=== PATIENT | female | born 1990 | race African-American/Black ===

== ENCOUNTER 2016-07-04 11:23 | Emergency (ER) | payer OTHER ==
--- NOTE | 2016-07-04 11:50 | ER Document Report ---
ED Medical Screen (RME) - General Chief Complaint: Diarrhea Stated Complaint: DIARRHEA Mode of Arrival: Ambulatory Information source: Patient Notes: Patient presents to the emergency department with her son for complaints of diarrhea since Saturday. She reports sharp pains when she is on the toilet. Denies fever vomiting. Patient is nontoxic looking. - Related Data Allergies/Adverse Reactions: No Known Allergies Allergy (Verified 02/25/13 20:36) Past Medical History Renal/ Medical History: Reports: Hx Ovarian Cysts - Immunizations Immunizations up to date: Yes Hx Diphtheria, Pertussis, Tetanus Vaccination: Yes Physical Exam - Vital signs Vitals: Temp Pulse Resp BP Pulse Ox 98.5 F 81 14 137/94 H 96 07/04/16 11:34 07/04/16 11:34 07/04/16 11:34 07/04/16 11:34 07/04/16 11:34 Course - Vital Signs Vital signs: Temp Pulse Resp BP Pulse Ox 98.5 F 81 14 137/94 H 96 07/04/16 11:34 07/04/16 11:34 07/04/16 11:34 07/04/16 11:34 07/04/16 11:34
--- NOTE | 2016-07-04 12:43 | ER Document Report ---
HPI - HPI Patient complains to provider of: head congestion, diarrhea and headache Onset: Other - Saturday Onset/Duration: Persistent Pain Level: 2 Context: 26-year-old obese female complaining of diarrhea and some low abdominal cramping when she sits on the toilet to have diarrhea since Saturday. She also has some head congestion and headache. No chest pain or shortness of breath. No nausea or vomiting. No fever or chills. No dysuria frequency or urgency. No vaginal discharge. Associated Symptoms: None Exacerbated by: Denies Relieved by: Denies - ROS ROS below otherwise negative: Yes Systems Reviewed and Negative: Yes All other systems reviewed and negative - REPRODUCTIVE Reproductive: REPORTS: : - DERM Skin Color: Normal Past Medical History - General Information source: Patient - Social History Smoking Status: Never Smoker Chew tobacco use (# tins/day): No Frequency of alcohol use: None Drug Abuse: None Family History: None Patient has suicidal ideation: No Patient has homicidal ideation: No Renal/ Medical History: Reports: Hx Ovarian Cysts. Denies: Hx Peritoneal Dialysis Surgical Hx: Negative - Immunizations Immunizations up to date: Yes Hx Diphtheria, Pertussis, Tetanus Vaccination: Yes Vertical Provider Document - CONSTITUTIONAL Agree With Documented VS: Yes Exam Limitations: No Limitations - HEENT HEENT: Normocephalic, Pharyngeal Erythema. negative: Conjuctival Injection, Tympanic Membrane Red - Minimal, Tympanic Membrane Bulging - NECK Neck: Supple. negative: Lymphadenopathy-Left, Lymphadenopathy-Right - RESPIRATORY Respiratory: Breath Sounds Normal, No Respiratory Distress O2 Sat by Pulse Oximetry: 96 - CARDIOVASCULAR Cardiovascular: Regular Rate, Regular Rhythm - GI/ABDOMEN Gastrointestinal: Abdomen Soft, Abdomen Tender - Minimal suprapubic, No Organomegaly. negative: Abdominal Guarding, Abdominal Rebound - MUSCULOSKELETAL/EXTREMETIES Musculoskeletal/Extremeties: SUNITHA EISENBERG - NEURO Level of Consciousness: Awake, Alert - DERM Integumentary: Warm, Dry, No Rash Course - Re-evaluation Re-evalutation: 07/04/16 14:54 Labs negative, no history of C. difficile or recent antibiotics 07/04/16 14:56 Crying with migraine headache her will drive I will order Compazine, Benadryl, Motrin. She has an elevated blood pressure reading which will need to be rechecked next week a fever list practice doctors. 07/04/16 14:58 - Vital Signs Vital signs: Temp Pulse Resp BP Pulse Ox 98.5 F 81 14 137/94 H 96 07/04/16 11:34 07/04/16 11:34 07/04/16 11:34 07/04/16 11:34 07/04/16 11:34 - Laboratory Result Diagrams: 07/04/16 13:10 07/04/16 13:10 Discharge - Discharge Clinical Impression: Abdominal cramping, elevated blood reading Diarrhea Qualifiers: Diarrhea type: unspecified type Qualified Code(s): R19.7 - Diarrhea, unspecified Headache Qualifiers: Headache type: unspecified Headache chronicity pattern: unspecified pattern Intractability: not intractable Qualified Code(s): R51 - Headache Disposition: HOME, SELF-CARE Instructions: Abdominal Pain ([facility]), Diarrhea, Nonspecific ([facility]), Headache ([facility]) Additional Instructions: return to er if worse plenty of fluids see family practice doctor for follow up and blood pressure recheck Forms: Return to Work
[2016-07-04 13:22] LABS: ABSOLUTE EOSINOPHILS # (AUTO) 0.3 10^3/uL (0.0-0.6); ABSOLUTE LYMPHOCYTES (AUTO) 2.3 10^3/uL (0.5-4.7); ABSOLUTE MONOCYTES (AUTO) 0.6 10^3/uL (0.1-1.4); BASOPHILS % (AUTO) 0.3 % (0-2); EOSINOPHILS % (AUTO) 4.6 % (0-6); HEMATOCRIT 37.4 % (36.0-47.0); HEMOGLOBIN 12.3 g/dL (12.0-15.5); HGB HCT DIFFERENCE -0.5; LYMPHOCYTES % (AUTO) 37.8 % (13-45); MEAN CORPUSCULAR HEMOGLOBIN 28.4 pg (27.0-33.4); MEAN CORPUSCULAR VOLUME 86 fl (80-97); MONOCYTES % (AUTO) 9.4 % (3-13); RED BLOOD COUNT 4.33 10^6/uL (3.72-5.28); RED CELL DISTRIBUTION WIDTH 14.1 % (11.5-14.0); SEGMENTED NEUTROPHILS % (AUTO) 47.9 % (42-78); WHITE BLOOD COUNT 6.2 10^3/uL (4.0-10.5)
[2016-07-04 13:31] LABS: APPEARANCE,URINE CLOUDY; BILIRUBIN,URINE NEGATIVE (NEGATIVE); GLUCOSE, URINE NEGATIVE (NEGATIVE); KETONES,URINE NEGATIVE (NEGATIVE); LEUKOCYTE ESTERASE,URINE NEGATIVE (NEGATIVE); NITRITE,URINE NEGATIVE (NEGATIVE); PROTEIN,URINE NEGATIVE (NEGATIVE); URINE SPECIFIC GRAVITY 1.021; UROBILINOGEN,URINE NEGATIVE mg/dL (<2.0)
[2016-07-04 13:46] LABS: ALANINE AMINOTRANSFERASE 26 U/L (9-52); ALBUMIN 3.7 g/dL (3.5-5.0); ALKALINE PHOSPHATASE 94 U/L (38-126); ANION GAP 9 (5-19); ASPARTATE AMINO TRANSFERASE 18 U/L (14-36); BILIRUBIN,TOTAL 0.6 mg/dL (0.2-1.3); BLOOD UREA NITROGEN 10 mg/dL (7-20); CALCIUM 9.1 mg/dL (8.4-10.2); CARBON DIOXIDE 26 mmol/L (22-30); CHLORIDE 105 mmol/L (98-107); CREATININE RESULT 0.64 mg/dL (0.52-1.25); GLUCOSE 87 mg/dL (75-110); POTASSIUM 4.1 mmol/L (3.6-5.0); SODIUM 139.9 mmol/L (137-145)
[2016-07-04] MEDS ORDERED: ACETAMINOPHEN 325 MG TABLET PO ONE (14:10)
[2016-07-04] MEDS ORDERED: DIPHENHYDRAMINE HCL 50 MG CAPSULE PO ONE (14:56)
[2016-07-04] MEDS ORDERED: IBUPROFEN 600 MG TABLET PO ONE (14:56)
[2016-07-04] MEDS ORDERED: PROCHLORPERAZINE MALEATE 10 MG TABLET PO ONE (14:56)
[2016-07-04 17:44] VITALS: BP 136/89
== END 2016-07-04 16:40 | disposition home or self-care (01) ==
LOC: ER 11:23
DX: R19.7 Diarrhea, unspecified (principal); R51 Headache; E66.9 Obesity, unspecified; R10.30 Lower abdominal pain, unspecified; R68.89 Other general symptoms and signs; R03.0 Elevated blood-pressure reading, without diagnosis of hypertension
CPT/HCPCS: 99284; 36415; 87070; 87086; 87880; 84703; 85025; 80053; 81001; 87804; S0183

== ENCOUNTER 2016-07-23 17:59 | Emergency (ER) | payer OTHER ==
--- NOTE | 2016-07-23 20:06 | ER Document Report ---
ED Medical Screen (RME) - General Stated Complaint: ABDOMINAL PAIN Time seen by provider: 20:05 Mode of Arrival: Ambulatory Information source: Patient Notes: 26-year-old female with intermittent sharp left pelvic pain that started one month ago. She has irregular periods last normal period is June 15. She had a positive home test on Saturday. No vaginal discharge, odor, or bleeding. History HPV. No dysuria. I have greeted and performed a rapid initial assessment of this patient. A comprehensive ED assessment, evaluation of the patient, analysis of test results , and completion of the medical decision making process will be conducted by additional ED providers. - Related Data Allergies/Adverse Reactions: No Known Allergies Allergy (Verified 07/23/16 20:04) Past Medical History Renal/ Medical History: Reports: Hx Ovarian Cysts. Denies: Hx Peritoneal Dialysis - Immunizations Immunizations up to date: Yes Hx Diphtheria, Pertussis, Tetanus Vaccination: Yes Physical Exam - Vital signs Vitals: Temp Pulse Resp BP Pulse Ox 98.2 F 81 20 132/89 H 100 07/23/16 18:14 07/23/16 18:14 07/23/16 18:14 07/23/16 18:14 07/23/16 18:14 Course - Vital Signs Vital signs: Temp Pulse Resp BP Pulse Ox 98.2 F 81 20 132/89 H 100 07/23/16 18:14 07/23/16 18:14 07/23/16 18:14 07/23/16 18:14 07/23/16 18:14
[2016-07-23 20:44] LABS: APPEARANCE,URINE CLEAR; BILIRUBIN,URINE NEGATIVE (NEGATIVE); GLUCOSE, URINE NEGATIVE (NEGATIVE); KETONES,URINE 80 mg/dL (NEGATIVE); LEUKOCYTE ESTERASE,URINE NEGATIVE (NEGATIVE); NITRITE,URINE NEGATIVE (NEGATIVE); PROTEIN,URINE 30 mg/dL (NEGATIVE); URINE SPECIFIC GRAVITY 1.033; UROBILINOGEN,URINE NEGATIVE mg/dL (<2.0)
--- NOTE | 2016-07-23 23:12 | ER Document Report ---
ED GI/ - General Mode of Arrival: Ambulatory Information source: Patient TRAVEL OUTSIDE OF THE [place] IN LAST 30 DAYS: No - HPI Patient complains to provider of: Pelvic pain - cramping Associated symptoms: Other - See above <ANDI HUFF - Last Filed: 07/24/16 01:25> <SAMMI MARTINEZ - Last Filed: 07/24/16 04:39> - General Chief Complaint: Abdominal Pain Stated Complaint: ABDOMINAL PAIN Notes: Patient is a 26 year old female who presents to the emergency department complaining of left sided pelvic cramping. Patient states she had a positive test at home 4 days ago and she has a history of ectopic pregnancies. Patient denies vaginal bleeding. Patient reports she has not started taking vitamins. (ANDI HUFF) - Related Data Allergies/Adverse Reactions: No Known Allergies Allergy (Verified 07/23/16 20:04) Past Medical History - General Information source: Patient - Social History Smoking Status: Never Smoker Chew tobacco use (# tins/day): No Frequency of alcohol use: None Drug Abuse: None Family History: None, Reviewed & Not Pertinent Patient has suicidal ideation: No Patient has homicidal ideation: No Renal/ Medical History: Reports: Hx Ovarian Cysts - Immunizations Immunizations up to date: Yes Hx Diphtheria, Pertussis, Tetanus Vaccination: Yes <ANDI HUFF - Last Filed: 07/24/16 01:25> Review of Systems - Review of Systems Constitutional: No symptoms reported EENT: No symptoms reported Cardiovascular: No symptoms reported Respiratory: No symptoms reported Gastrointestinal: No symptoms reported Genitourinary: No symptoms reported Female Genitourinary: See HPI, , Other - Pelvic cramping. denies: Vaginal bleeding Musculoskeletal: No symptoms reported Skin: No symptoms reported Hematologic/Lymphatic: No symptoms reported Neurological/Psychological: No symptoms reported -: Yes All other systems reviewed and negative <ANDI HUFF - Last Filed: 07/24/16 01:25> Physical Exam - Vital signs Interpretation: Normal - General General appearance: Appears well, Alert - HEENT Head: Normocephalic, Atraumatic - Respiratory Respiratory status: No respiratory distress Chest status: Nontender Breath sounds: Normal Chest palpation: Normal - Cardiovascular Rhythm: Regular Heart sounds: Normal auscultation Murmur: No - Abdominal Inspection: Normal Distension: No distension Bowel sounds: Normal Tenderness: Nontender Organomegaly: No organomegaly - Back Back: Normal, Nontender - Extremities General upper extremity: Normal inspection General lower extremity: Normal inspection - Neurological Neuro grossly intact: Yes Cognition: Normal Orientation: AAOx4 [place] Coma Scale Eye Opening: Spontaneous [place] Coma Scale Verbal: Oriented [place] Coma Scale Motor: Obeys Commands [place] Coma Scale Total: 15 Speech: Normal Motor strength normal: LUE, RUE, LLE, RLE - Psychological Associated symptoms: Normal affect, Normal mood - Skin Skin Temperature: Warm Skin Moisture: Dry Skin Color: Normal <ANDI HUFF - Last Filed: 07/24/16 01:25> Course <ANDI HUFF - Last Filed: 07/24/16 01:25> - Diagnostic Test Radiology reviewed: Reports reviewed <SAMMI MARTINEZ - Last Filed: 07/24/16 04:39> - Re-evaluation Re-evalutation: 07/24/16 Patient is a 26-year-old female who comes in for abdominal cramping. No cramping at this time. No tenderness to palpation. Patient is . She has a gestational sac in her uterus. No evidence for ectopic. Feels well this time. Stable for discharge home. Follow-up with [facility]. Advised to take a vitamin. Return if any worsening or concerning symptoms. (SAMMI MARTINEZ) - Vital Signs Vital signs: Temp Pulse Resp BP Pulse Ox 98.2 F 87 17 141/90 H 99 07/23/16 18:14 07/24/16 00:04 07/24/16 00:04 07/24/16 00:04 07/24/16 00:04 - Laboratory Laboratory results interpreted by me: 07/23/16 07/23/16 20:25 20:25 Beta HCG, Quant 1568.10 H Urine Protein 30 H Urine Ketones 80 H Discharge <ANDI HUFF - Last Filed: 07/24/16 01:25> <SAMMI MARTINEZ - Last Filed: 07/24/16 04:39> - Discharge Clinical Impression: Qualifiers: Weeks of gestation: less than 8 weeks Qualified Code(s): Z3A.01 - Less than 8 weeks gestation of Condition: Stable Disposition: HOME, SELF-CARE Instructions: ([facility]), Pelvic Pain in ([facility]) Prescriptions: Vit No.129/Iron/FA [ Tablet] 1 each PO DAILY #60 tablet Forms: Return to Work Referrals: [facility] [Provider Group] - Follow up in 1 week Scribe Attestation: 07/24/16 04:38 I personally performed the services described in the documentation, reviewed and edited the documentation which was dictated to the scribe in my presence, and it accurately records my words and actions. (SAMMI MARTINEZ) Scribe Documentation - Scribe Written by Scribe:: eldon Prieto, 07/24/16, 0023 acting as scribe for :: Chong <ANDI HUFF - Last Filed: 07/24/16 01:25>
[2016-07-24 00:06] VITALS: BP 141/90
== END 2016-07-24 00:04 | disposition home or self-care (01) ==
LOC: ER 17:59
DX: O26.891 Other specified pregnancy related conditions, first trimester (principal); R10.2 Pelvic and perineal pain; Z3A.01 Less than 8 weeks gestation of pregnancy
CPT/HCPCS: 36415; 76817; 81001; 84702; 87086; 99284

== ENCOUNTER 2016-08-20 10:55 | Emergency (ER) | payer OTHER ==
[2016-08-20] MEDS ORDERED: NORMAL SALINE 1000 ML 1,000 ML IV ONE (11:30)
[2016-08-20] MEDS ORDERED: DIPHENHYDRAMINE HCL 50 MG/ML VIAL IV ONE (11:30)
[2016-08-20] MEDS ORDERED: METOCLOPRAMIDE HCL INJ/PF 10 MG/2 ML SDV IV ONE (11:31)
--- NOTE | 2016-08-20 11:32 | ER Document Report ---
ED Medical Screen (RME) - General Chief Complaint: Headache Stated Complaint: HEADACHE,NAUSEA,VOMITING Mode of Arrival: Ambulatory Information source: Patient TRAVEL OUTSIDE OF THE [place] IN LAST 30 DAYS: No - HPI Onset: Yesterday Onset/Duration: Sudden Quality of pain: Achy, Dull Severity: Moderate Associated Symptoms: Headache, Nausea, Vomiting. denies: Shortness of breath, Sinus pain/drainage Exacerbated by: Denies Relieved by: Denies Similar symptoms previously: Yes Recently seen / treated by doctor: No Notes: 08/20/16 11:26 PRESENT HEADACHE ENTIRELY TYPICAL COMP. W/ PRIOR MIGRAINES - Related Data Smoking: Non-smoker Frequency of alcohol use: None Drug Abuse: None Allergies/Adverse Reactions: No Known Allergies Allergy (Verified 07/31/16 10:18) Past Medical History - General Information source: Patient - Social History Cigarette use (# per day): No Chew tobacco use (# tins/day): No Frequency of alcohol use: None Drug Abuse: None Lives with: Family Family history: None - Past Medical History Cardiac Medical History: Reports: None Pulmonary Medical History: Reports: None Neurological Medical History: Reports: Hx Migraine Renal/ Medical History: Reports: Hx Ovarian Cysts. Denies: Hx Peritoneal Dialysis Malignancy Medical History: Reports: None Psychiatric Medical History: Reports: None Surgical Hx: Negative - Immunizations Immunizations up to date: Yes Hx Diphtheria, Pertussis, Tetanus Vaccination: Yes Review of Systems - Review of Systems Female Genitourinary: Physical Exam - Vital signs Interpretation: Normal. No: Tachycardic, Tachypneic, Febrile - General General appearance: Appears well, Alert In distress: None
[2016-08-20] MEDS ORDERED: NORMAL SALINE 500 ML IV PRN (14:06)
--- NOTE | 2016-08-20 14:10 | ER Document Report ---
ED Headache - General Chief Complaint: Headache Stated Complaint: HEADACHE,NAUSEA,VOMITING Mode of Arrival: Ambulatory Notes: Patient is a 26-year-old female presents emergency Department complaining of migraine headache since yesterday. Patient states she is a history of migraines but is been INVOLVED her medications since she left the [employer] in the [place] has not been able to establish a follow-up visit with her and neurology yet. Patient states that she has a history of taking a daily preventative medication as well as Maxalt for abortive purposes. She is also 9 weeks' and is only about to take Tylenol [id number] for her migraines. Patient states that she typically takes Excedrin which sometimes helps her to her . Patient states [facility] and she's had an ultrasound upon her first visit with them confirming IUP. Otherwise states her migraine headache she denies any other past medical history . Complaint today is predominantly in the right side of her head with associated nausea and vomiting. TRAVEL OUTSIDE OF THE [place] IN LAST 30 DAYS: No - Related Data Allergies/Adverse Reactions: No Known Allergies Allergy (Verified 07/31/16 10:18) Past Medical History - General Information source: Patient - Social History Smoking Status: Unknown if Ever Smoked Cigarette use (# per day): No Chew tobacco use (# tins/day): No Frequency of alcohol use: None Drug Abuse: None Lives with: Family Family History: None, Reviewed & Not Pertinent Patient has suicidal ideation: No Patient has homicidal ideation: No - Past Medical History Cardiac Medical History: Reports: None Pulmonary Medical History: Reports: None Neurological Medical History: Reports: Hx Migraine Renal/ Medical History: Reports: Hx Ovarian Cysts. Denies: Hx Peritoneal Dialysis Malignancy Medical History: Reports: None Psychiatric Medical History: Reports: None Surgical Hx: Negative - Immunizations Immunizations up to date: Yes Hx Diphtheria, Pertussis, Tetanus Vaccination: Yes Review of Systems - Review of Systems Constitutional: No symptoms reported Gastrointestinal: See HPI Neurological/Psychological: See HPI -: Yes All other systems reviewed and negative Physical Exam - Vital signs Vitals: Temp Pulse Resp BP Pulse Ox 98.3 F 76 16 134/85 H 99 08/20/16 11:24 08/20/16 11:24 08/20/16 11:24 08/20/16 11:24 08/20/16 11:24 - Notes Notes: PHYSICAL EXAM GENERAL: Patient is alert, in mild distress sitting in a dark exam room with sunglasses on her face and not really acknowledging me when I enter the room. HEAD: Normocephalic, atraumatic. EYES: Pupils equal, round, and reactive to light. Extraocular movements intact. ENT: Oral mucosa moist, tongue midline. NECK: Full range of motion. Supple. Trachea midline. LUNGS: Clear to auscultation bilaterally, no wheezes, rales, or rhonchi. No respiratory distress. HEART: Regular rate and rhythm. No murmurs, gallops, or rubs. ABDOMEN: Soft, nondistended, nontender. No guarding, rebound, or rigidity.. Bowel sounds present in all 4 quadrants. EXTREMITIES: Moves all 4 extremities spontaneously. No edema, radial and dorsalis pedis pulses 2/4 bilaterally. No cyanosis. NEUROLOGICAL: Alert and oriented x4. Normal speech. PSYCH: Normal affect, normal mood. SKIN: Warm, dry, normal turgor. No rashes or lesions noted. Course - Re-evaluation Re-evalutation: 08/20/16 16:43 Patient is a 26 red female with a past medical history significant for migraine headaches typically requiring prescription medications. I have discussed her case with neurology front end ui developer Dr. Garcia is recommended starting the patient on by mouth Imitrex for her migraines until she is able to follow-up with the [place] neurology. Kary harrell patient is agreeable. Otherwise after her fluids and medications she is here with a was stable, no acute distress and afebrile. She is complete resolution of her symptoms are like to go home. - Vital Signs Vital signs: Temp Pulse Resp BP Pulse Ox 98.3 F 88 16 118/81 100 08/20/16 11:24 08/20/16 16:25 08/20/16 11:24 08/20/16 16:25 08/20/16 16:25 - Laboratory Laboratory results interpreted by me: 08/20/16 11:35 Beta HCG, Quant 66517.00 H Discharge - Discharge Clinical Impression: Migraine Condition: Good Disposition: HOME, SELF-CARE Additional Instructions: HEADACHE: The physician does not feel that the headache you are experiencing has a serious underlying cause. Most headaches are due to emotional stress, with resultant muscle tension (tension headache). Occasionally, headaches are secondary to changes in the blood vessels of the scalp (vascular headache and migraine headache). Sometimes, a headache is the first symptom of another developing illness, such as a viral infection. You have no evidence of stroke, bleeding, meningitis, or other serious cause of your headache. The treatment of headaches varies with the severity and cause of the pain. Not all headaches need pain shots. In fact, there is evidence that using narcotics for headaches may make them worse in the long run. The physician will determine the therapy that's in your best interest. If you develop a fever, if the headache is different from any you've previously experienced, or if the headache progressively worsens, then call your physician at once or go to the emergency room. REGLAN (METOCLOPRAMIDE): Reglan has been prescribed. This medicine affects the stomach and intestines. It can be used to treat nausea and vomiting, to prevent reflux of stomach acid up into the esophagus, or to increase the contractions of the stomach and intestines. It is often prescribed for esophagitis, and for paralysis of the stomach in diabetics. Reglan can cause either mild restlessness or drowsiness. You should contact the doctor at once if you become extremely restless, anxious, or cannot sleep, or if you develop uncontrollable motions of the lips, tongue, or jaw. Do not take alcohol with this medicine. Do not drive or operate machinery until you have been taking this medicine long enough to know how it affects you. Call the doctor if you develop abdominal pains, lightheadedness, black stool, or blood in the stool or vomitus. USE OF DIPHENHYDRAMINE: Diphenhydramine (Benadryl) is an antihistamine and has been recommended to help treat your headache and to prevent side effects of other medications used to treat headaches. The medication can be repeated four times daily. Age Elixir (12.5 mg/tsp) 25 mg pill adult 1-2 tabs Antihistamines may cause drowsiness, especially with the first dose. Do not operate machinery or drive while under the effects of the medication. Do not combine the medication with alcohol, or with any other medication without talking to your doctor. ANTINAUSEA MEDICATION: You have been given a medication to suppress nausea and vomiting. This type of medication can be given as a shot, pill, or suppository. It will usually last for many hours. Pills and shots usually last six to eight hours, suppositories last about 12 hours. For the typical illness, only one or two doses of the medication may be necessary. Mild lightheadedness may occur. This type of medicine can cause drowsiness. Do not drive or operate dangerous machinery while under its influence. Do not mix with alcohol. See your doctor at once if you have muscle spasms or tightness, or uncontrollable motions (particularly of the neck, mouth, or jaw). Persistent vomiting or severe lightheadedness should also be evaluated by the physician. FOLLOW-UP CARE: If you have been referred to a physician for follow-up care, call the physician s office for an appointment as you were instructed or within the next two days. If you experience worsening or a significant change in your symptoms, notify the physician immediately or return to the Emergency Department at any time for re-evaluation. [facility] Prescriptions: Ondansetron [Zofran Odt 4 mg Tablet] 1 - 2 tab PO Q4H PRN #15 tab.rapdis PRN Reason: For Nausea/Vomiting Sumatriptan Succinate [Imitrex 100 Mg Tablet] 100 mg PO BIDP PRN #20 tablet PRN Reason: Forms: Elevated Blood Pressure, Return to Work
[2016-08-20] MEDS ORDERED: DIPHENHYDRAMINE HCL 50 MG/ML VIAL ONE (14:39)
[2016-08-20] MEDS ORDERED: METOCLOPRAMIDE HCL INJ/PF 10 MG/2 ML SDV ONE (14:39)
[2016-08-20] MEDS ORDERED: ACETAMINOPHEN 325 MG TABLET PO ONE (15:41)
[2016-08-20 16:27] VITALS: BP 118/81
== END 2016-08-20 16:25 | disposition home or self-care (01) ==
LOC: ER 10:55
DX: G43.909 Migraine, unspecified, not intractable, without status migrainosus (principal); R11.2 Nausea with vomiting, unspecified
CPT/HCPCS: 99283; 96361; 96374; 96375; 36415; 84702; J1200; J2765; J7030

== ENCOUNTER 2016-11-18 16:16 | Outpatient (CLI) | payer OTHER ==
[2016-11-18 17:00] LABS: APPEARANCE,URINE SLIGHTLY-CLOUDY; BILIRUBIN,URINE NEGATIVE (NEGATIVE); GLUCOSE, URINE NEGATIVE (NEGATIVE); KETONES,URINE NEGATIVE (NEGATIVE); LEUKOCYTE ESTERASE,URINE NEGATIVE (NEGATIVE); NITRITE,URINE NEGATIVE (NEGATIVE); PROTEIN,URINE NEGATIVE (NEGATIVE); URINE SPECIFIC GRAVITY 1.028; UROBILINOGEN,URINE NEGATIVE mg/dL (<2.0)
[2016-11-18 17:09] LABS: URINE BARBITURATES SCREEN NEGATIVE; URINE METHADONE SCREEN NEGATIVE; URINE OPIATES LOW NEGATIVE; URINE PHENCYCLIDINE SCREEN NEGATIVE
--- NOTE | 2016-11-18 18:56 | RADIOLOGY REPORT (SQ) ---
EXAM DESCRIPTION: U/S OB LIMITED COMPLETED DATE/TIME: 11/18/2016 6:39 pm REASON FOR STUDY: CL for abd cramping COMPARISON: 08/12/2016. TECHNIQUE: Limited transabdominal grayscale ultrasound for evaluation of specific requested obstetri rosa parameters. LIMITATIONS: None. FINDINGS: CERVICAL LENGTH: 4.5 cm. Closed. MARYSE: Maximum vertical pocket 6.4 cm. FHR: 150 beats per minute. PRESENTATION: Transverse OTHER: Posterior placenta without evidence of abruption or previa. IMPRESSION: LIMITED OBSTETRICAL ULTRASOUND WITH MEASURED PARAMETERS DELINEATED ABOVE. Trimester of : Third trimester - 28 weeks to delivery. TECHNICAL DOCUMENTATION: JOB ID: [id number] [employer]- All Rights Reserved
== END 2016-11-18 18:42 | disposition home or self-care (01) ==
LOC: LC 16:16
PROVIDERS: ATTEND Obstetrics & Gynecology
PROC: 4A1HXCZ Monitoring of Products of Conception, Cardiac Rate, External Approach (ICD-10-PCS; principal; 2016-11-18)
DX: O99.283 Endocrine, nutritional and metabolic diseases complicating pregnancy, third trimester (principal); E86.0 Dehydration; O26.893 Other specified pregnancy related conditions, third trimester; R10.9 Unspecified abdominal pain
CPT/HCPCS: 76815; 80307; 81001

== ENCOUNTER 2017-01-08 14:56 | Emergency (ER) | payer OTHER ==
--- NOTE | 2017-01-08 15:37 | ER Document Report ---
ED Medical Screen (RME) - General Chief Complaint: Numbness Stated Complaint: CHEST PAIN Time Seen by Provider: 01/08/17 15:36 Notes: Patient reports right sided facial weakness. 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 She has had this weakness since this morning. Patient also states she has been under a lot of stress and has been having some chest pain for the last several weeks. She is also had one episode where she was short of breath and felt like she may pass out. This episode was 2-3 days ago and it was while she was under stress. She is currently approximately 29 weeks and has had no problems with the . TRAVEL OUTSIDE OF THE [place] IN LAST 30 DAYS: No - Related Data Allergies/Adverse Reactions: No Known Allergies Allergy (Verified 01/08/17 15:05) Past Medical History - Social History Frequency of alcohol use: None Drug Abuse: None Family history: None Neurological Medical History: Reports: Hx Migraine Renal/ Medical History: Reports: Hx Ovarian Cysts. Denies: Hx Peritoneal Dialysis - Immunizations Immunizations up to date: Yes Hx Diphtheria, Pertussis, Tetanus Vaccination: Yes Physical Exam - Vital signs Vitals: Temp Pulse Resp BP Pulse Ox 98.8 F 95 20 141/97 H 98 01/08/17 15:05 01/08/17 15:05 01/08/17 15:05 01/08/17 15:05 01/08/17 15:05 Course - Vital Signs Vital signs: Temp Pulse Resp BP Pulse Ox 98.8 F 96 20 141/97 H 98 01/08/17 15:06 01/08/17 15:06 01/08/17 15:05 01/08/17 15:06 01/08/17 15:06
[2017-01-08 15:54] LABS: ABSOLUTE EOSINOPHILS # (AUTO) 0.3 10^3/uL (0.0-0.6); ABSOLUTE LYMPHOCYTES (AUTO) 2.3 10^3/uL (0.5-4.7); ABSOLUTE MONOCYTES (AUTO) 0.8 10^3/uL (0.1-1.4); ABSOLUTE NEUT (AUTO) 5.5 10^3/uL (1.7-8.2); BASOPHILS % (AUTO) 0.2 % (0-2); EOSINOPHILS % (AUTO) 3.3 % (0-6); HEMOGLOBIN 11.1 g/dL (12.0-15.5); HGB HCT DIFFERENCE 0.3; MEAN CORPUSCULAR HEMOGLOBIN 28.8 pg (27.0-33.4); MEAN CORPUSCULAR HGB CONC 33.6 g/dL (32.0-36.0); MEAN CORPUSCULAR VOLUME 86 fl (80-97); RED BLOOD COUNT 3.85 10^6/uL (3.72-5.28); RED CELL DISTRIBUTION WIDTH 14.1 % (11.5-14.0); SEGMENTED NEUTROPHILS % (AUTO) 61.5 % (42-78); WHITE BLOOD COUNT 8.9 10^3/uL (4.0-10.5)
[2017-01-08 16:09] LABS: ALANINE AMINOTRANSFERASE 20 U/L (9-52); ALBUMIN 3.5 g/dL (3.5-5.0); ALKALINE PHOSPHATASE 122 U/L (38-126); ANION GAP 8 (5-19); ASPARTATE AMINO TRANSFERASE 19 U/L (14-36); BILIRUBIN,DIRECT 0.3 mg/dL (0.0-0.4); BILIRUBIN,TOTAL 0.4 mg/dL (0.2-1.3); BLOOD UREA NITROGEN 5 mg/dL (7-20); CALCIUM 9.5 mg/dL (8.4-10.2); CARBON DIOXIDE 21 mmol/L (22-30); CHLORIDE 107 mmol/L (98-107); GLUCOSE 82 mg/dL (75-110); POTASSIUM 4.2 mmol/L (3.6-5.0); SODIUM 136.1 mmol/L (137-145); TOTAL PROTEIN 6.6 g/dL (6.3-8.2)
--- NOTE | 2017-01-08 17:08 | ER Document Report ---
ED General - General Chief Complaint: Numbness Stated Complaint: CHEST PAIN Time Seen by Provider: 01/08/17 15:36 Mode of Arrival: Ambulatory Information source: Patient Notes: Patient is a 26-year-old female who is 29 weeks who presents to the ER today for right sided facial weakness that she woke up with this morning. Patient states that her tongue is slightly numb but the worst part of it is just that the right side of her mouth feels numb and weak. She denies any numbness or weakness anywhere else such as the arms or legs, she denies headache blurred vision, she does state the right eye has also been watering a little today. She has never had this happen before. She denies any chest pain today. TRAVEL OUTSIDE OF THE [place] IN LAST 30 DAYS: No - Related Data Allergies/Adverse Reactions: No Known Allergies Allergy (Verified 01/08/17 15:05) Past Medical History - General Information source: Patient - Social History Smoking Status: Former Smoker Frequency of alcohol use: None Drug Abuse: None Family History: None, Reviewed & Not Pertinent Patient has suicidal ideation: No Patient has homicidal ideation: No Neurological Medical History: Reports: Hx Migraine Renal/ Medical History: Reports: Hx Ovarian Cysts. Denies: Hx Peritoneal Dialysis - Immunizations Immunizations up to date: Yes Hx Diphtheria, Pertussis, Tetanus Vaccination: Yes Review of Systems - Review of Systems Constitutional: No symptoms reported EENT: No symptoms reported Cardiovascular: No symptoms reported Respiratory: No symptoms reported Gastrointestinal: No symptoms reported Genitourinary: No symptoms reported Female Genitourinary: No symptoms reported Musculoskeletal: No symptoms reported Skin: See HPI Hematologic/Lymphatic: No symptoms reported Neurological/Psychological: No symptoms reported Physical Exam - Vital signs Vitals: Temp Pulse Resp BP Pulse Ox 98.8 F 95 20 141/97 H 98 01/08/17 15:05 01/08/17 15:05 01/08/17 15:05 01/08/17 15:05 01/08/17 15:05 - Notes Notes: PHYSICAL EXAMINATION: GENERAL: Well-appearing and in no acute distress. HEAD: Atraumatic, normocephalic. EYES: Pupils equal round and reactive to light, extraocular movements intact, sclera anicteric, conjunctiva are normal. ENT: ear canals without erythema or foreign body, TMs pearly rivero with good bony landmarks, nares patent, oropharynx clear without exudates. Moist mucous membranes. NECK: Normal range of motion, supple without lymphadenopathy LUNGS: CTAB and equal. No wheezes rales or rhonchi. HEART: Regular rate and rhythm without murmurs ABDOMEN: Soft, no tenderness. No guarding, no rebound BACK: no vertebral tenderness, normal ROM GI/: no CVA tenderness EXTREMITIES: Normal range of motion, no pitting edema. No cyanosis. NEUROLOGICAL: weakness noted to the right face with weakness on smiling to the right side of the mouth and weakness on lifting right eyebrow, Normal sensory/ motor exams. Good and equal strength bilaterally otherwise, Kernig and Brudzinski's signs negative, Romberg's test normal, normal heel to zhou testing PSYCH: Normal mood, normal affect. 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 - Vital Signs Vital signs: Temp Pulse Resp BP Pulse Ox 98.5 F 96 20 116/78 96 01/08/17 17:23 01/08/17 17:23 01/08/17 15:05 01/08/17 17:23 01/08/17 17:23 - Laboratory Result Diagrams: 01/08/17 15:44 01/08/17 15:44 Laboratory results interpreted by me: 01/08/17 01/08/17 15:44 15:44 Hgb 11.1 L Hct 33.0 L RDW 14.1 H Sodium 136.1 L Carbon Dioxide 21 L BUN 5 L Creatinine 0.50 L Discharge - Discharge Clinical Impression: Finger infection, Haddad's palsy Condition: Stable Disposition: HOME, SELF-CARE Instructions: Haddad's Palsy ([facility]) Additional Instructions: Return immediately for any new or worsening symptoms. Follow up with primary care provider, call tomorrow to make followup appointment. Prescriptions: Cephalexin [Cephalexin 250 MG Tablet] 250 mg PO BID #10 tablet
[2017-01-08 17:27] VITALS: BP 116/78
--- NOTE | 2017-01-08 21:12 | EKG REPORT ---
SEVERITY:- BORDERLINE ECG - SINUS RHYTHM PROBABLE LEFT ATRIAL ABNORMALITY : Confirmed by: Patric Hicks 08-Jan-2017 21:11:14
== END 2017-01-08 17:27 | disposition home or self-care (01) ==
LOC: ER 14:56
DX: O99.353 Diseases of the nervous system complicating pregnancy, third trimester (principal); G51.0 Bell's palsy; O98.813 Other maternal infectious and parasitic diseases complicating pregnancy, third trimester; L08.9 Local infection of the skin and subcutaneous tissue, unspecified; Z3A.29 29 weeks gestation of pregnancy; Z87.891 Personal history of nicotine dependence
CPT/HCPCS: 36415; 80053; 84484; 85025; 93005; 93010; 99285

== ENCOUNTER 2017-01-19 20:35 | Outpatient (CLI) | payer OTHER ==
[2017-01-19] MEDS ORDERED: RINGERS SOLUTION,LACTATED 1,000 ML IV ONE (21:21)
[2017-01-19 21:27] LABS: APPEARANCE,URINE SLIGHTLY-CLOUDY; BILIRUBIN,URINE NEGATIVE (NEGATIVE); GLUCOSE, URINE NEGATIVE (NEGATIVE); KETONES,URINE NEGATIVE (NEGATIVE); LEUKOCYTE ESTERASE,URINE NEGATIVE (NEGATIVE); NITRITE,URINE NEGATIVE (NEGATIVE); PROTEIN,URINE NEGATIVE (NEGATIVE); URINE SPECIFIC GRAVITY 1.025; UROBILINOGEN,URINE NEGATIVE mg/dL (<2.0)
[2017-01-19 21:35] LABS: URINE BARBITURATES SCREEN NEGATIVE; URINE METHADONE SCREEN NEGATIVE; URINE OPIATES LOW NEGATIVE; URINE PHENCYCLIDINE SCREEN NEGATIVE
[2017-01-19] MEDS ORDERED: BUTALB/ACETAMINOPHEN/CAFFEINE 1 TAB EACH PO ONE (21:52)
[2017-01-19 21:56] LABS: ABSOLUTE EOSINOPHILS # (AUTO) 0.2 10^3/uL (0.0-0.6); ABSOLUTE LYMPHOCYTES (AUTO) 2.4 10^3/uL (0.5-4.7); ABSOLUTE MONOCYTES (AUTO) 0.9 10^3/uL (0.1-1.4); ABSOLUTE NEUT (AUTO) 5.6 10^3/uL (1.7-8.2); BASOPHILS % (AUTO) 0.2 % (0-2); EOSINOPHILS % (AUTO) 1.8 % (0-6); LYMPHOCYTES % (AUTO) 26.4 % (13-45); MEAN CORPUSCULAR HEMOGLOBIN 28.7 pg (27.0-33.4); MEAN CORPUSCULAR HGB CONC 33.4 g/dL (32.0-36.0); MEAN CORPUSCULAR VOLUME 86 fl (80-97); MONOCYTES % (AUTO) 9.5 % (3-13); RED BLOOD COUNT 3.85 10^6/uL (3.72-5.28); RED CELL DISTRIBUTION WIDTH 13.8 % (11.5-14.0); SEGMENTED NEUTROPHILS % (AUTO) 62.1 % (42-78)
[2017-01-19] MEDS ORDERED: BUTALB/ACETAMINOPHEN/CAFFEINE 1 TAB EACH ONE (21:57)
[2017-01-19 21:59] LABS: PROTHROMBIN TIME 13.3 SEC (11.4-15.4)
[2017-01-19 22:00] LABS: PARTIAL THROMBOPLASTIN TIME 30.9 SEC (23.5-35.8)
--- NOTE | 2017-01-19 22:15 | RADIOLOGY REPORT (SQ) ---
EXAM DESCRIPTION: U/S OB LIMITED COMPLETED DATE/TIME: 01/19/2017 10:03 pm REASON FOR STUDY: abd trauma. rule out abruption/cervical length COMPARISON: None. TECHNIQUE: Limited transabdominal and endovaginal grayscale ultrasound for evaluation of specific re quested obstetrical parameters. LIMITATIONS: None. FINDINGS: CERVICAL LENGTH: 3 cm. Closed. MARYSE: 16.3 cm. FHR: 155 beats per minute. PRESENTATION: Cephalic. OTHER: Posterior placenta without evidence of abruption or previa. IMPRESSION: Limited obstetrical ultrasound, as above. No evidence of abruption. Trimester of : Unkown, clinical and ultrasound age not provided. TECHNICAL DOCUMENTATION: JOB ID: [id number] [employer]- All Rights Reserved
[2017-01-19] MEDS ORDERED: TERBUTALINE SULFATE INJ/PF 1 MG/1 ML SDV SUBCUT ONE (22:41)
[2017-01-19] MEDS ORDERED: TERBUTALINE SULFATE INJ/PF 1 MG/1 ML SDV ONE (22:48)
[2017-01-20 00:49] LABS: TOTAL RBC COUNT 1000; TYPE IN FILE? TYPE NOT IN FILE; VOL OF FETOMATERNAL HEMORRHAGE 0 ML (0)
== END 2017-01-19 23:57 | disposition home or self-care (01) ==
LOC: LC 20:35
PROVIDERS: ATTEND Student in an Organized Health Care Education/Training Program
PROC: 4A1HXCZ Monitoring of Products of Conception, Cardiac Rate, External Approach (ICD-10-PCS; principal; 2017-01-19)
DX: O9A.213 Injury, poisoning and certain other consequences of external causes complicating pregnancy, third trimester (principal); S39.91XA Unspecified injury of abdomen, initial encounter; Z3A.30 30 weeks gestation of pregnancy
CPT/HCPCS: 59899; 94760; 86900; 86901; 36415; 85025; 85362; 85610; 85730; 81001; 85460; 80307; 76815; J3490; J3105

== ENCOUNTER 2017-02-15 17:37 | Emergency (ER) | payer OTHER ==
[2017-02-15 19:41] LABS: APPEARANCE,URINE SLIGHTLY-CLOUDY; BILIRUBIN,URINE NEGATIVE (NEGATIVE); GLUCOSE, URINE NEGATIVE (NEGATIVE); KETONES,URINE NEGATIVE (NEGATIVE); LEUKOCYTE ESTERASE,URINE NEGATIVE (NEGATIVE); NITRITE,URINE NEGATIVE (NEGATIVE); PROTEIN,URINE NEGATIVE (NEGATIVE); URINE SPECIFIC GRAVITY 1.004; UROBILINOGEN,URINE NEGATIVE mg/dL (<2.0)
--- NOTE | 2017-02-15 20:13 | ER Document Report ---
ED General - General Chief Complaint: Chest Pain Stated Complaint: CHEST PAIN Time Seen by Provider: 02/15/17 19:03 Notes: Patient is a 27-year-old female at 32 weeks who presents with intermittent retrosternal chest pain. Does describe it as an intermittent, stabbing pain. States it started approximately 2 hours prior to arrival and has since resolved without intervention. She has a history of similar episodes during this but notes that the episodes are usually are not this intense. She denies any associated shortness of breath, pleuritic pain, hemoptysis, or unilateral leg swelling. She has no history of a DVT or pulmonary embolus. She denies any pain at the time of my assessment. She has not seen her primary care doctor SIDE PANEL PADDER regarding today's concerns. TRAVEL OUTSIDE OF THE [place] IN LAST 30 DAYS: No - Related Data Allergies/Adverse Reactions: No Known Allergies Allergy (Verified 01/08/17 15:05) Past Medical History - General Information source: Patient - Social History Smoking Status: Never Smoker Chew tobacco use (# tins/day): No Frequency of alcohol use: None Drug Abuse: None Lives with: Spouse/Significant other Family History: Reviewed & Not Pertinent Neurological Medical History: Reports: Hx Migraine Renal/ Medical History: Reports: Hx Ovarian Cysts. Denies: Hx Peritoneal Dialysis Surgical Hx: Negative - Immunizations Immunizations up to date: Yes Hx Diphtheria, Pertussis, Tetanus Vaccination: Yes Review of Systems - Review of Systems Notes: Constitutional: Negative for fever. HENT: Negative for sore throat. Eyes: Negative for visual changes. Cardiovascular: Positive for chest pain. Respiratory: Negative for shortness of breath. Gastrointestinal: Negative for abdominal pain, vomiting or diarrhea. Genitourinary: Negative for dysuria. Musculoskeletal: Negative for back pain. Skin: Negative for rash. Neurological: Negative for headaches, weakness or numbness. 10 point ROS negative except as marked above and in HPI. Physical Exam - Vital signs Vitals: Resp Pulse Ox 21 H 97 02/15/17 17:54 02/15/17 17:54 Interpretation: Normal Notes: PHYSICAL EXAMINATION: GENERAL: Well-appearing, well-nourished and in no acute distress. HEAD: Atraumatic, normocephalic. EYES: Pupils equal round and reactive to light, extraocular movements intact, sclera anicteric, conjunctiva are normal. ENT: nares patent, oropharynx clear without exudates. Moist mucous membranes. NECK: Normal range of motion, supple without lymphadenopathy LUNGS: Breath sounds clear to auscultation bilaterally and equal. No wheezes rales or rhonchi. HEART: Regular rate and rhythm without murmurs ABDOMEN: Gravid uterus, soft, nontender, normoactive bowel sounds. No guarding , no rebound. No masses appreciated. EXTREMITIES: Normal range of motion, no pitting or edema. No cyanosis. NEUROLOGICAL: No focal neurological deficits. Moves all extremities spontaneously and on command. PSYCH: Normal mood, normal affect. SKIN: Warm, Dry, normal turgor, no rashes or lesions noted. Course - Re-evaluation Re-evalutation: 02/15/17 20:14 Patient presents with intermittent stabbing pain to her central chest that is been present for the past 2-3 hours. It is intermittently present and not present at the time of my assessment. She denies any associated significant shortness of breath. She has been intermittently having these symptoms for the past several weeks. She denies any pleuritic pain, hemoptysis, or unilateral leg swelling. I have a overall very low clinical suspicion for an acute pulmonary embolus. At time of arrival patient was not tachycardic, heart rate of 96. Patient does admit that while here in the emergency department she became increasingly anxious due to blood draws so she has had some periods of tachycardia while in the emergency department. However, while I am in the room talking to the patient her heart remained consistently in the mid to low 90s. She has not had any hypotension, tachypnea, hypoxemia, or vomiting. Low clinical suspicion for an acute myocarditis or pericarditis. Patient's breath sounds are clear and equal bilaterally, no symptoms to suggest acute pneumothorax or pneumonia. EKG is without any ST changes to suggest ACS. I have discussed at length with the patient that a pulmonary embolus would be a consideration of chest pain during but given her vital signs, clinical history and exam there is an overall low clinical suspicion for this diagnosis. After reviewing the risks and benefits of proceeding with a CTA of the chest versus continued clinical monitoring as an outpatient, patient was agreeable to avoiding CT of the chest here. If troponin is unremarkable and patient continues to be asymptomatic will plan for discharge home. 09/29/17 21:27 Patient continues to be without any chest discomfort or shortness of breath. She states she does feel anxious and would like to go home. Her heart rate at time of reassessment is 96. At this time will discharge with return precautions and follow-up recommendations. Verbal discharge instructions given a the bedside and opportunity for questions given. Medication warnings reviewed. Patient is in agreement with this plan and has verbalized understanding of return precautions and the need for primary care follow-up in the next 24-72 hours. - Vital Signs Vital signs: Temp Pulse Resp BP Pulse Ox 98.1 F 92 18 128/73 H 96 02/15/17 22:01 02/15/17 22:01 02/15/17 22:01 02/15/17 22:01 02/15/17 22:01 - Laboratory Result Diagrams: 02/15/17 20:16 Laboratory results interpreted by me: 02/15/17 20:16 Sodium 136.3 L Carbon Dioxide 20 L BUN 4 L Creatinine 0.50 L Discharge - Discharge Clinical Impression: Chest pain Qualifiers: Chest pain type: unspecified Qualified Code(s): R07.9 - Chest pain, unspecified Condition: Good Disposition: HOME, SELF-CARE Additional Instructions: Your labs are normal today. Please follow-up with your SIDE PANEL PADDER regarding today' s concerns. Return if you develop recurrence of chest pain, shortness of breath , pass, began coughing blood, or have any other symptoms that are worrisome to you. Referrals: ABIMAEL THOMASON MD [Primary Care Provider] - Follow up as needed
[2017-02-15] MEDS ORDERED: METOCLOPRAMIDE HCL ORAL SOLN 10 MG/10 ML UDCUP PO ONE (20:14)
[2017-02-15] MEDS ORDERED: LIDOCAINE 2% VISCOUS SOLN 20 ML UDCUP PO ONE (20:14)
[2017-02-15] MEDS ORDERED: FAMOTIDINE 20 MG TABLET PO ONE (20:14)
[2017-02-15 21:01] LABS: ANION GAP 9 (5-19); BLOOD UREA NITROGEN 4 mg/dL (7-20); CALCIUM 9.7 mg/dL (8.4-10.2); CARBON DIOXIDE 20 mmol/L (22-30); CHLORIDE 107 mmol/L (98-107); GLUCOSE 96 mg/dL (75-110); POTASSIUM 3.8 mmol/L (3.6-5.0); SODIUM 136.3 mmol/L (137-145)
[2017-02-15 22:02] VITALS: BP 128/73
--- NOTE | 2017-02-16 11:50 | EKG REPORT ---
SEVERITY:- NORMAL ECG - SINUS RHYTHM : Confirmed by: Patric Hicks 16-Feb-2017 11:49:25
== END 2017-02-15 22:01 | disposition home or self-care (01) ==
LOC: ER 17:37
DX: O26.893 Other specified pregnancy related conditions, third trimester (principal); R07.9 Chest pain, unspecified; O99.343 Other mental disorders complicating pregnancy, third trimester; F41.9 Anxiety disorder, unspecified; Z3A.32 32 weeks gestation of pregnancy
CPT/HCPCS: 93005; 99285; 36415; 80048; 81001; 84484; 93010; J3490

== ENCOUNTER 2017-03-04 13:28 | Outpatient (CLI) | payer OTHER ==
[2017-03-04 14:35] LABS: APPEARANCE,URINE CLEAR; BILIRUBIN,URINE NEGATIVE (NEGATIVE); GLUCOSE, URINE NEGATIVE (NEGATIVE); KETONES,URINE NEGATIVE (NEGATIVE); LEUKOCYTE ESTERASE,URINE NEGATIVE (NEGATIVE); NITRITE,URINE NEGATIVE (NEGATIVE); PROTEIN,URINE NEGATIVE (NEGATIVE); URINE SPECIFIC GRAVITY 1.001; UROBILINOGEN,URINE NEGATIVE mg/dL (<2.0)
[2017-03-04 14:36] LABS: AMNISURE (ROM) NEGATIVE (NEGATIVE)
--- NOTE | 2017-03-04 14:42 | Non Stress Test Report ---
Non Stress Test Datetime Report Generated by CPN: 03/04/2017 14:42 DEMOGRAPHIC EGA NST: 36.3 INDICATION Indication for Study: Other Indication for Study (NST) Other: LABOR CHECK- ?SROM MONITORING Monitor Explained: Monitor Explained; Test Explained; Patient Verbalized Understanding Time on Monitor: 03/04/2017 13:56 Time off Monitor: 03/04/2017 14:35 NST Duration: 39 NST INTERVENTIONS NST Interventions: None Physician Notified NST: J Monroe CNM BABY A: [id number] BABY A Movement : Present Contraction Frequency : 0 FHR Baseline : 125 Accelerations : 15X15 Variability : Moderate 6-25bpm NST Review: Meets Criteria for Reactive NST NST Review and Verified By : Krysten Betts RN NST Results: Reactive NST REPORT Report Trigger: Send Report
[2017-03-04 14:59] LABS: URINE BARBITURATES SCREEN NEGATIVE; URINE METHADONE SCREEN NEGATIVE; URINE OPIATES LOW NEGATIVE; URINE PHENCYCLIDINE SCREEN NEGATIVE
== END 2017-03-04 14:45 | disposition home or self-care (01) ==
LOC: LC 13:28
PROVIDERS: ATTEND Obstetrics & Gynecology
PROC: 4A1HXCZ Monitoring of Products of Conception, Cardiac Rate, External Approach (ICD-10-PCS; principal; 2017-03-04)
DX: O47.03 False labor before 37 completed weeks of gestation, third trimester (principal); Z3A.36 36 weeks gestation of pregnancy
CPT/HCPCS: 59025; 80307; 81001; 84112

== ENCOUNTER 2017-03-14 01:24 | Outpatient (CLI) | payer OTHER ==
[2017-03-14 01:54] LABS: APPEARANCE,URINE SLIGHTLY-CLOUDY; BILIRUBIN,URINE NEGATIVE (NEGATIVE); GLUCOSE, URINE NEGATIVE (NEGATIVE); KETONES,URINE NEGATIVE (NEGATIVE); LEUKOCYTE ESTERASE,URINE NEGATIVE (NEGATIVE); NITRITE,URINE NEGATIVE (NEGATIVE); PROTEIN,URINE NEGATIVE (NEGATIVE); URINE SPECIFIC GRAVITY 1.003; UROBILINOGEN,URINE NEGATIVE mg/dL (<2.0)
[2017-03-14 02:14] LABS: URINE BARBITURATES SCREEN NEGATIVE; URINE METHADONE SCREEN NEGATIVE; URINE OPIATES LOW NEGATIVE; URINE PHENCYCLIDINE SCREEN NEGATIVE
--- NOTE | 2017-03-14 02:20 | Non Stress Test Report ---
Non Stress Test Datetime Report Generated by CPN: 03/14/2017 02:19 DEMOGRAPHIC Test Number: 2 EGA NST: 37.6 INDICATION Indication for Study: Decreased Movement; Ordered by Provider MONITORING Monitor Explained: Monitor Explained; Test Explained; Patient Verbalized Understanding Time on Monitor: 03/14/2017 01:43 Time off Monitor: 03/14/2017 02:17 Time off Monitor: 03/14/2017 02:16 NST Duration: 34 NST INTERVENTIONS NST Interventions: PO Hydration; Reposition Patient Physician Notified NST: Bhanu BABY A: [id number] BABY A Movement : Present Contraction Frequency : none FHR Baseline : 145 Accelerations : 15X15 Decelerations : None Variability : Moderate 6-25bpm NST Review: Meets Criteria for Reactive NST NST Review and Verified By : LORA Murillo Results: Reactive NST REPORT Report Trigger: Send Report
== END 2017-03-14 02:26 | disposition home or self-care (01) ==
LOC: LC 01:24
PROVIDERS: ATTEND Obstetrics & Gynecology
PROC: 4A1HXCZ Monitoring of Products of Conception, Cardiac Rate, External Approach (ICD-10-PCS; principal; 2017-03-14)
DX: O47.1 False labor at or after 37 completed weeks of gestation (principal); Z3A.37 37 weeks gestation of pregnancy
CPT/HCPCS: 59025; 80307; 81005

== ENCOUNTER 2017-03-27 20:27 | Outpatient (CLI) | payer OTHER ==
[2017-03-27 21:17] LABS: APPEARANCE,URINE CLOUDY; BILIRUBIN,URINE NEGATIVE (NEGATIVE); GLUCOSE, URINE NEGATIVE (NEGATIVE); KETONES,URINE 20 mg/dL (NEGATIVE); LEUKOCYTE ESTERASE,URINE LARGE (NEGATIVE); NITRITE,URINE NEGATIVE (NEGATIVE); PROTEIN,URINE NEGATIVE (NEGATIVE); URINE SPECIFIC GRAVITY 1.008; UROBILINOGEN,URINE NEGATIVE mg/dL (<2.0)
[2017-03-27 21:40] LABS: URINE BARBITURATES SCREEN NEGATIVE; URINE METHADONE SCREEN NEGATIVE; URINE OPIATES LOW NEGATIVE; URINE PHENCYCLIDINE SCREEN NEGATIVE
[2017-03-27] MEDS ORDERED: HYDROXYZINE PAMOATE 50 MG CAPSULE PO ONE (21:44)
[2017-03-27] MEDS ORDERED: HYDROXYZINE PAMOATE 50 MG CAPSULE ONE (21:46)
--- NOTE | 2017-03-27 22:05 | Non Stress Test Report ---
Non Stress Test Datetime Report Generated by CPN: 03/27/2017 22:05 DEMOGRAPHIC Test Number: 3 EGA NST: 39.5 INDICATION Indication for Study: Ordered by Provider; Other Indication for Study (NST) Other: LC MONITORING Monitor Explained: Monitor Explained; Test Explained; Patient Verbalized Understanding; Other Time on Monitor: 03/27/2017 20:45 Time off Monitor: 03/27/2017 21:41 NST Duration: 56 NST INTERVENTIONS NST Interventions: PO Hydration BABY A: [id number] BABY A Movement : Present Contraction Frequency : 8-9 FHR Baseline : 140 Accelerations : 15X15 Variability : Moderate 6-25bpm NST Review: Meets Criteria for Reactive NST NST Review and Verified By : B Ordoñez, RN NST Results: Reactive NST REPORT Report Trigger: Send Report
== END 2017-03-27 21:54 | disposition home or self-care (01) ==
LOC: LC 20:27
PROVIDERS: ATTEND Obstetrics & Gynecology
PROC: 4A1HXCZ Monitoring of Products of Conception, Cardiac Rate, External Approach (ICD-10-PCS; principal; 2017-03-27)
DX: O47.1 False labor at or after 37 completed weeks of gestation (principal); Z3A.39 39 weeks gestation of pregnancy
CPT/HCPCS: 59025; 80307; 81005

== ENCOUNTER 2017-03-28 06:19 | Inpatient (IN) | payer OTHER ==
[2017-03-28] MEDS ORDERED: RINGERS SOLUTION,LACTATED 1,000 ML IV PRN (06:21)
[2017-03-28] MEDS ORDERED: OXYTOCIN/NORMAL SALINE 20 UNIT/1,000 ML RTUINJ IV PRN ×2 (06:28→14:32)
[2017-03-28 07:40] LABS: ABSOLUTE EOSINOPHILS # (AUTO) 0.1 10^3/uL (0.0-0.6); ABSOLUTE LYMPHOCYTES (AUTO) 1.7 10^3/uL (0.5-4.7); ABSOLUTE MONOCYTES (AUTO) 0.5 10^3/uL (0.1-1.4); ABSOLUTE NEUT (AUTO) 2.7 10^3/uL (1.7-8.2); BASOPHILS % (AUTO) 0.5 % (0-2); EOSINOPHILS % (AUTO) 2.3 % (0-6); HEMATOCRIT 30.9 % (36.0-47.0); HEMOGLOBIN 10.5 g/dL (12.0-15.5); HGB HCT DIFFERENCE 0.6; LYMPHOCYTES % (AUTO) 33.6 % (13-45); MEAN CORPUSCULAR HEMOGLOBIN 28.1 pg (27.0-33.4); MEAN CORPUSCULAR HGB CONC 33.9 g/dL (32.0-36.0); MEAN CORPUSCULAR VOLUME 83 fl (80-97); MONOCYTES % (AUTO) 9.4 % (3-13); RED BLOOD COUNT 3.73 10^6/uL (3.72-5.28); RED CELL DISTRIBUTION WIDTH 18.2 % (11.5-14.0); SEGMENTED NEUTROPHILS % (AUTO) 54.2 % (42-78)
[2017-03-28] MEDS ORDERED: OXYTOCIN/NORMAL SALINE 20 UNIT/1,000 ML RTUINJ ONE ×2 (08:01→09:34)
[2017-03-28] MEDS ORDERED: FENTANYL CITRATE INJ/PF 100 MCG/2 ML AMPUL ONE ×2 (09:29→15:15)
[2017-03-28] MEDS ORDERED: FENTANYL CITRATE INJ/PF 100 MCG/2 ML AMPUL IV ONE ×3 (09:30→16:00)
[2017-03-28] MEDS ORDERED: LIDOCAINE 1% INJ-PF (10 MG/ML) 30 ML SDV ONE (09:34)
[2017-03-28] MEDS ORDERED: MISOPROSTOL 0.2 MG TABLET ONE (09:34)
[2017-03-28] MEDS ORDERED: EPHEDRINE SULFATE INJ 50 MG/1 ML AMPULE ONE (09:44)
[2017-03-28] MEDS ORDERED: FENTANYL/BUPIVACAINE/NS/PF 200 MCG/100 ML RTUINJ EPI ONE (09:45)
[2017-03-28] MEDS ORDERED: BUPIVACAINE HCL 0.25 % INJ/PF (2.5 MG/1 ML) 30 ML VIAL ONE (09:45)
[2017-03-28] MEDS ORDERED: DIBUCAINE 1% OINTMENT 28 GM TP PRN (14:32)
[2017-03-28] MEDS ORDERED: MEASLES,MUMPS&RUBELLA VACC/PF 0.5 ML VIAL SUBCUT PRN (14:32)
[2017-03-28] MEDS ORDERED: BENZOCAINE/MENTHOL AEROSOL SPRAY 56 ML TOP PRN (14:32)
[2017-03-28] MEDS ORDERED: DIPH/PERTUSS(ACELL)/TETANUS VAC/PF 0.5 ML SYR (>=10YO) IM PRN (14:32)
[2017-03-28] MEDS ORDERED: ZOLPIDEM TARTRATE 5 MG TABLET PO PRN (14:32)
[2017-03-28] MEDS ORDERED: ACETAMINOPHEN WITH CODEINE #3 TABLET PO PRN (14:32)
[2017-03-28] MEDS ORDERED: IBUPROFEN 800 MG TABLET ONE (14:35)
--- NOTE | 2017-03-28 14:58 | Delivery Summary ---
Del Sum A-C Datetime Report Generated by CPN: 03/28/2017 14:57 DELIVERY PERSONNEL DELIVERY PERSONNEL: [id number] Delivery Doctor:: Stefania Roy Nurse Aluminum Siding Mechanic Certified:: Beata Bolton CNM Labor and Delivery Nurse:: Juanis Pittman RNbody joiner Nurse:: NATALEE Basurto Nursery Nurse:: Johana Andrade RN Nursery Nurse:: Frannie Ventura RN Sack Cleaner/FACIAL OPERATOR: Nicole Umanzor, ST MATERNAL INFORMATION Delivery Anesthesia: Epidural Medications After Delivery: Pitocin Bolus-Please Comment; Other-Please Comment Meds After Delivery Comment: cytotec 1000 mcg placed rectally per provider. Pitocin 20 units in 1000 ml nss open for bolus Maternal Complications: Hemorrhage Provider Comments: SVDVM over intact perineum, OA. Infant vigorous, to mothers abd. Cord clamped x2 and cut per FOB. Cord blood collected, increased vaginal bleeding began. Attemped to deliver placenta spontaneously, then delivered manually, intact. Hemostasis acheived, with EBL 700ml. Apgars 9,9. Dr. Roy at bedside for delivery. LABOR SUMMARY EDC: 03/29/2017 00:00 No. Babies in Womb: 1 Attempted: No Labor Anesthesia: Epidural LABOR INFORMATION Reason for Induction: Gestational Hypertension Onset of Labor: 03/28/2017 08:24 Complete Dilatation: 03/28/2017 13:27 Oxytocin: Induction Group B Beta Strep: Negative Antibiotics # of Doses: 0 Steroids Given: None Reason Steroids Not Administered: Not Applicable MEMBRANES Membranes Rupture Method: Artificial Rupture of Membranes: 03/28/2017 08:24 Length of Rupture (hr): 5.13 Amniotic Fluid Color: Clear Amniotic Fluid Amount: Small Amniotic Fluid Odor: Normal STAGES OF LABOR Stage 1 hr: 5 Stage 1 min: 3 Stage 2 hr: 0 Stage 2 min: 5 Stage 3 hr: 0 Stage 3 min: 2 Total Time in Labor hr: 5 Total Time in Labor min: 10 VAGINAL DELIVERY Episiotomy: None Laceration #1: None Laceration Extension #1: N/A Laceration Repair: Not Applicable Sponge Count Correct: N/A Sharps Count Correct: N/A CSECTION DELIVERY Primary Indication: N/A Secondary Indication: N/A CSection Incidence: N/A Labor: N/A Elective: N/A CSection Incision: N/A BABY A INFORMATION Delivery Date/Time: 03/28/2017 13:32 Method of Delivery: Vaginal Born in Route : No : N/A Forceps: N/A Vacuum Extraction: N/A Shoulder Dystocia : No PRESENTATION/POSITION BABY A Presentation: Cephalic Cephalic Presentation: Vertex Vertex Position: Right Occipital Anterior Breech Presentation: N/A PLACENTA INFORMATION BABY A Placenta Delivery Time : 03/28/2017 13:34 Placenta Method of Delivery: Spontaneous Placenta Status: Delivered SCORES BABY A Heart Rate 1 min: >100 bpm Resp Effort 1 min: Good Cry Reflex Irritability 1 min: Cough or Sneeze or Pulls Away Muscle Tone 1 min: Active Motion Color 1 min: Body [place], Extremities Blue Resuscitation Effort 1 min: Tactile Stimulation SCORE 1 MIN: 9 Heart Rate 5 min: >100 bpm Resp Effort 5 min: Good Cry Reflex Irritability 5 min: Cough or Sneeze or Pulls Away Muscle Tone 5 min: Active Motion Color 5 min: Body [place], Extremities Blue Resuscitation Effort 5 min: N/A SCORE 5 MIN: 9 Resuscitation Effort 10 min: N/A INFANT INFORMATION BABY A Gestational Age at Delivery: 39.6 Gestational Status: Full Term- 39- 40.6 Weeks Infant Outcome : Liveborn Condition : Stable Sex: Male IDENTIFICATION BABY A Infant Verification Date/Time: 03/28/2017 13:44 ID Band Number: [id number] Mother's Name Verified: Yes Infant RN Verifying Infant: JShauna Thomas, RN/ C. Joss, RN WEIGHT/LENGTH BABY A Infant Birthweight (gm): 4300 Weight (lb): 9 Weight (oz): 8 Length (in): 20.25 Length (cm): 51.44 CORD INFORMATION BABY A No. Cord Vessels: 3 Nuchal Cord : N/A Cord Blood Taken: Yes-For Eval (Mom's Blood Type - or O+) Infant Suction: Mouth; Nose ASSESSMENT BABY A Infant Complications: Multiple Variable Decels Physical Findings at Delivery: Caput Succedaneum Respirations: Appears Normal Skin to Skin: Yes Skin to Skin Time (min): 30 Therapeutic Case Manager/ALS Called : No Transferred To: Remains with Mother BABY B INFORMATION : N/A SIGNATURES Assignment: Brian Roy MD Signature: with User ID: [email or web address] : with User ID: [email or web address] : I was personally available for consultation and serving as supervising physician for the MLP.
[2017-03-28] MEDS ORDERED: AMPICILLIN SOD/SULBACTAM 3 GM VIAL ONE (15:18)
[2017-03-28] MEDS ORDERED: METHYLERGONOVINE MALEATE INJ/PF 0.2 MG/1 ML AMPULE ONE (15:18)
[2017-03-28] MEDS ORDERED: LOPERAMIDE HCL 2 MG CAPSULE ONE (16:00)
[2017-03-28] MEDS ORDERED: LOPERAMIDE HCL 2 MG CAPSULE PO ONE (16:00)
[2017-03-28] MEDS ORDERED: ACETAMINOPHEN 325 MG TABLET ONE (16:00)
[2017-03-28] MEDS ORDERED: CARBOPROST TROMETHAMINE INJ 250 MCG/1 ML AMPULE ONE (16:00)
[2017-03-28] MEDS ORDERED: ACETAMINOPHEN 325 MG TABLET PO ONE (16:00)
[2017-03-28 16:22] LABS: ABSOLUTE LYMPHOCYTES (AUTO) 0.9 10^3/uL (0.5-4.7); ABSOLUTE MONOCYTES (AUTO) 1.1 10^3/uL (0.1-1.4); ABSOLUTE NEUT (AUTO) 9.1 10^3/uL (1.7-8.2); BASOPHILS % (AUTO) 0.2 % (0-2); EOSINOPHILS % (AUTO) 0.1 % (0-6); HEMATOCRIT 28.4 % (36.0-47.0); HEMOGLOBIN 9.5 g/dL (12.0-15.5); HGB HCT DIFFERENCE 0.1; LYMPHOCYTES % (AUTO) 8.5 % (13-45); MEAN CORPUSCULAR HGB CONC 33.6 g/dL (32.0-36.0); MEAN CORPUSCULAR VOLUME 83 fl (80-97); MONOCYTES % (AUTO) 9.9 % (3-13); RED BLOOD COUNT 3.41 10^6/uL (3.72-5.28); RED CELL DISTRIBUTION WIDTH 18.4 % (11.5-14.0); SEGMENTED NEUTROPHILS % (AUTO) 81.3 % (42-78)
[2017-03-28 16:30] LABS: WHITE BLOOD COUNT 11.2 10^3/uL (4.0-10.5)
[2017-03-28] MEDS ORDERED: OXYCODONE-ACETAMINOPHEN 5-325 MG TABLET PO ONE (16:50)
[2017-03-28] MEDS ORDERED: OXYCODONE-ACETAMINOPHEN 5-325 MG TABLET ONE (16:51)
[2017-03-28] MEDS ORDERED: METHYLERGONOVINE MALEATE INJ/PF 0.2 MG/1 ML AMPULE IV ONE (17:24)
[2017-03-28] MEDS ORDERED: CARBOPROST TROMETHAMINE INJ 250 MCG/1 ML AMPULE IM PRN (17:42)
--- NOTE | 2017-03-28 18:27 | Admission Physical ---
Datetime Report Generated by CPN: 03/28/2017 18:27 CURRENT ADMISSION Chief Complaint: Scheduled Induction of Labor Indication for Induction: Gestational HTN; Other Indication for Induction: No Active Labor Admit Plan: Initiate Labor Induction Protocol Admit Plan- Other: macrosomia suspected high wt gain maternal obesity ALLERGIES Medication Allergies: No Medication Allergies: No Known Allergies (03/28/2017) Medication Allergies: No Known Allergies (03/27/2017) Medication Allergies: No Known Allergies (03/14/2017) Medication Allergies: No Known Allergies (03/04/2017) Medication Allergies: No Known Allergies (01/08/2017) Medication Allergies: No Known Allergies (07/31/2016) Latex: No Latex Allergies Food Allergies: N/A Environmental Allergies: N/A OBSTETRICAL HISTORY EDC: 03/29/2017 00:00 : 4 Para: 2 Term: 2 : 0 SAB: 0 Ectopic: 1 Livin Cesareans: 0 VBACs: 0 Multiple Births: 0 Gestational Diabetes: No Rh Sensitization: No Incompetent Cervix: No OCTAVIA: No Infertility: No ART Treatment: No Uterine Anomaly: No IUGR: No Hx Previous C/S: No Macrosomia: No Hx Loss/Stillborn: No PIH: Yes Hx : No Placenta Previa/Abruption: No Depression/PP Depression: No PTL/PROM: No Post Hemorrhage: No Current Procedures: Ultrasound; NST Obstetrical History Comments: G1 - 2012 Male 7 lb 4 oz G2 - 2014 ectopic G3 - 2015 Male 7 lb 5 oz G4 - current SEE RECORDS Alcohol: No Marijuana : No Cocaine: No Other Illicit Drugs: No Cigarettes: Never Smoker. [id number] MEDICAL HISTORY Diabetes: No Blood Transfusion: No Pulmonary Disease (Asthma, TB): No Breast Disease: No Hypertension: No Tumbling Barrel Painter Surgery: No Heart Disease: No Hosp/Surgery: Yes Autoimmune Disorder: No Anesthetic Complications: No Kidney Disease: No Abnormal Pap Smear: No Neuro/Epilepsy: No Psychiatric Disorders: No Other Medical Diseases: No Hepatitis/Liver Disease: No Significant Family History: No Varicosities/Phlebitis: No Trauma/Violence : No Thyroid Dysfunction: No Medical History Comments: migraines and two vaginal deliveries INFECTIOUS HISTORY Gonorrhea: No Genital Herpes: No Chlamydia: Yes Tuberculosis: No Syphilis: No Hepatitis: No HIV/AIDS Exposure: No Rash or Viral Illness: No HPV: No Infectious History Comments: Chlamydia - 2009, HPV - 2009, HSV - not sure of year, no history of outbreak PHYSICAL EXAM General: Normal HEENT: Deferred Neurologic: Normal Thyroid: Deferred Heart: Normal Lungs: Normal Breast: Deferred Back: Deferred Abdomen: Normal Genitourinary Exam: Normal Extremities: Deferred DTRs: Normal Pelvic Type: Adequate Physical Exam Comments: AROM Vital Signs: Reviewed VAGINAL EXAM Dilatation: 4 Effacement: 60 Station: -2 MEMBRANES Membranes: Ruptured Amniotic Fluid Color: Clear FETUS A EGA: 39.6 Monitoring: External US Presentation: Vertex PLANS FOR LABOR AND DELIVERY Labor and Delivery: None Pain Management: Medications Feeding Preference: Breast Benefit of Breast Feed Discussed: Yes Circumcision: Yes INFORMED CONSENT Assignment: Brian Roy MD Signature: with User ID: [email or web address] : with User ID: [email or web address]
[2017-03-28] MEDS: DOCUSATE SODIUM 100 MG CAPSULE PO SCH (19:22)
[2017-03-28] MEDS: FERROUS SULFATE 325 MG TABLET PO SCH (19:22)
[2017-03-28 19:53] LABS: HEMATOCRIT 27.9 % (36.0-47.0); HEMOGLOBIN 9.5 g/dL (12.0-15.5); HGB HCT DIFFERENCE 0.6; MEAN CORPUSCULAR HEMOGLOBIN 28.3 pg (27.0-33.4); MEAN CORPUSCULAR HGB CONC 34.1 g/dL (32.0-36.0); MEAN CORPUSCULAR VOLUME 83 fl (80-97); RED BLOOD COUNT 3.35 10^6/uL (3.72-5.28); WHITE BLOOD COUNT 10.8 10^3/uL (4.0-10.5)
[2017-03-28] MEDS: IBUPROFEN 800 MG TABLET PO SCH (21:11)
[2017-03-28] MEDS: AMPICILLIN SOD/SULBACTAM 3 GM VIAL IV SCH (21:11)
[2017-03-29] MEDS: IBUPROFEN 800 MG TABLET PO SCH ×3 (05:33→21:58)
[2017-03-29] MEDS: AMPICILLIN SOD/SULBACTAM 3 GM VIAL IV SCH ×2 (05:33→13:13)
[2017-03-29] MEDS: ACETAMINOPHEN WITH CODEINE #3 TABLET PO PRN ×2 (05:44→20:30)
[2017-03-29 07:22] LABS: HEMATOCRIT 25.8 % (36.0-47.0); HEMOGLOBIN 8.8 g/dL (12.0-15.5); HGB HCT DIFFERENCE 0.6; MEAN CORPUSCULAR HEMOGLOBIN 28.1 pg (27.0-33.4); MEAN CORPUSCULAR VOLUME 83 fl (80-97); RED BLOOD COUNT 3.13 10^6/uL (3.72-5.28); RED CELL DISTRIBUTION WIDTH 18.9 % (11.5-14.0); WHITE BLOOD COUNT 11.2 10^3/uL (4.0-10.5)
[2017-03-29] MEDS: DOCUSATE SODIUM 100 MG CAPSULE PO SCH ×2 (10:07→17:14)
[2017-03-29] MEDS: PRENATAL VITAMIN W-O CA NO5/FE FUMARATE/FA CAPSULE PO SCH (10:07)
[2017-03-29] MEDS: FERROUS SULFATE 325 MG TABLET PO SCH ×2 (10:07→17:14)
[2017-03-29] MEDS: SENNOSIDES/DOCUSATE 8.6-50 MG 1 EACH TABLET PO SCH (10:08)
--- NOTE | 2017-03-29 12:16 | PDOC PROGRESS REPORT ---
Subjective-OB Subjective: Post Delivery Day: 27 year old. Denies any needs at this time Physical Exam (OB) Vital Signs: Temp Pulse Resp BP Pulse Ox 97.9 F 97 14 125/72 100 03/29/17 11:55 03/29/17 11:55 03/29/17 11:55 03/29/17 11:55 03/29/17 11:55 Intake & Output 03/28/17 03/29/17 03/30/17 06:59 06:59 06:59 Intake Total 1800 600 Output Total 1150 540 Balance 650 60 Weight 138.75 kg - PIH/Pre-Eclampsia DTR's: 1 + Clonus: Negative Headache: Absent Epigastric Pain: No Visual Changes: No - Lochia Lochia Amount: Scant < 10 ml Lochia Color: Rubra/Red - Abdomen Description: Soft, Round Hernia Present: No Bowel Sounds: Normoactive Flatus Presence: Present Stool: Yes Fundal Description: Firm, Midline Fundal Height: u/u - u/2 Objective-Diagnostic Laboratory: 03/29/17 07:07 03/28/17 03/28/17 03/29/17 16:10 19:15 07:07 WBC 11.2 H D 10.8 H 11.2 H RBC 3.41 L 3.35 L 3.13 L Hgb 9.5 L 9.5 L 8.8 L Hct 28.4 L 27.9 L 25.8 L MCV 83 83 83 MCH 28.0 28.3 28.1 MCHC 33.6 34.1 34.0 RDW 18.4 H 18.0 H 18.9 H Plt Count 124 L 125 L 138 L Seg Neutrophils % 81.3 H Lymphocytes % 8.5 L Monocytes % 9.9 Eosinophils % 0.1 Basophils % 0.2 Absolute Neutrophils 9.1 H Absolute Lymphocytes 0.9 Absolute Monocytes 1.1 Absolute Eosinophils 0.0 Absolute Basophils 0.0
[2017-03-30] MEDS: IBUPROFEN 800 MG TABLET PO SCH (06:22)
[2017-03-30 08:31] VITALS: BP 124/84
--- NOTE | 2017-03-30 10:06 | PDOC PROGRESS REPORT ---
Subjective-OB Subjective: Post Delivery Day: 27 year old. Denies any needs at this time. Ready to go home. Physical Exam (OB) Vital Signs: Temp Pulse Resp BP Pulse Ox 97.9 F 86 17 124/84 98 03/30/17 08:20 03/30/17 08:20 03/30/17 08:20 03/30/17 08:20 03/30/17 08:20 Intake & Output 03/29/17 03/30/17 03/31/17 06:59 06:59 06:59 Intake Total 1800 600 Output Total 1150 540 Balance 650 60 - PIH/Pre-Eclampsia DTR's: 1 + Clonus: Negative Headache: Absent Epigastric Pain: No Visual Changes: No - Lochia Lochia Amount: Small 10-25 ml Lochia Color: Rubra/Red - Abdomen Description: Soft, Round Hernia Present: No Bowel Sounds: Normoactive Flatus Presence: Present Stool: Yes Fundal Description: Firm, Midline Fundal Height: u/u - u/2 Objective-Diagnostic Laboratory: 03/29/17 07:07
--- NOTE | 2017-03-30 10:12 | PDOC DISCHARGE SUMMARY ---
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 Is this a current diagnosis for this admission?: Yes (3) Obesity affecting Is this a current diagnosis for this admission?: Yes (4) hemorrhage Is this a current diagnosis for this admission?: Yes (5) Is this a current diagnosis for this admission?: Yes (6) Vaginal delivery Is this a current diagnosis for this admission?: Yes Discharge Data - Discharge Medication Home Medications: Acetaminophen [Tylenol] 325 mg PO PRN PRN 03/04/17 Pnv 102/Iron/Folate 1/Dss/Dha [Vitafol Fe+ Docusate Combo Pck] 1 tab PO DAILY Ferrous Sulfate [Iron] 325 mg PO BID 03/14/17 Gestational Age: 39.6 wks Reason(s) for Admission: Induction of Labor, [facility] Procedures: Ultrasound Intrapartum Procedure(s): Spontaneous Vaginal Delivery - Data Baby 1 Male at 1 minute: 9 at 5 minutes: 9 Weight: 4.309 kg Home with Mother: Yes Complications: No - Diagnosis Test Laboratory: Temp Pulse Resp BP Pulse Ox 97.9 F 86 17 124/84 98 03/30/17 08:20 03/30/17 08:20 03/30/17 08:20 03/30/17 08:20 03/30/17 08:20 03/28/17 03/28/17 03/28/17 07:14 16:10 19:15 RBC 3.73 3.41 L 3.35 L Hgb 10.5 L 9.5 L 9.5 L Hct 30.9 L 28.4 L 27.9 L 03/29/17 07:07 RBC 3.13 L Hgb 8.8 L Hct 25.8 L - Discharge information/Instructions Discharge Activity: Activity As Tolerated, Balance Activity w/Rest, No Lifting Over 10 Pounds, No Lifting/Push/Pulling, Pelvic Rest, Slowly Increase Activity, No tub bath Discharge Diet: Regular Disposition: HOME, SELF-CARE Follow up with: [facility] in: 4, Weeks
[2017-03-30] MEDS: FERROUS SULFATE 325 MG TABLET PO SCH (10:43)
[2017-03-30] MEDS: PRENATAL VITAMIN W-O CA NO5/FE FUMARATE/FA CAPSULE PO SCH (10:43)
[2017-03-30] MEDS: DOCUSATE SODIUM 100 MG CAPSULE PO SCH (10:43)
[2017-03-30] MEDS: SENNOSIDES/DOCUSATE 8.6-50 MG 1 EACH TABLET PO SCH (10:43)
== END 2017-03-30 11:21 | disposition home or self-care (01) | DRG 774 ==
LOC: LR 06:19 → 2S 18:15
PROVIDERS: ADMIT Obstetrics & Gynecology; ATTEND Obstetrics & Gynecology
PROC: 10E0XZZ Delivery of Products of Conception, External Approach (ICD-10-PCS; principal; 2017-03-28)
PROC: 10907ZC Drainage of Amniotic Fluid, Therapeutic from Products of Conception, Via Natural or Artificial Opening (ICD-10-PCS; 2017-03-28)
PROC: 4A1HXCZ Monitoring of Products of Conception, Cardiac Rate, External Approach (ICD-10-PCS; 2017-03-28)
DX: O13.4 Gestational [pregnancy-induced] hypertension without significant proteinuria, complicating childbirth (principal); O72.1 Other immediate postpartum hemorrhage; Z68.42 Body mass index [BMI] 45.0-49.9, adult; O36.63X0 Maternal care for excessive fetal growth, third trimester, not applicable or unspecified; O99.214 Obesity complicating childbirth; E66.9 Obesity, unspecified; O76 Abnormality in fetal heart rate and rhythm complicating labor and delivery; O26.03 Excessive weight gain in pregnancy, third trimester; Z28.21 Immunization not carried out because of patient refusal; Z3A.39 39 weeks gestation of pregnancy; Z37.0 Single live birth
CPT/HCPCS: 36415; 85025; 85027; 86592; 86850; 86900; 86901; 94760; J0295; J2210; J2590; J3010; J3490

== ENCOUNTER 2017-12-13 18:39 | Emergency (ER) | payer OTHER ==
--- NOTE | 2017-12-13 19:01 | ER Document Report ---
ED GI/ - General Chief Complaint: Abdominal Pain Stated Complaint: ABDOMINAL CRAMPING Time Seen by Provider: 12/13/17 18:52 Notes: Chief complaint: Abdominal cramps History of complain:( obtained from----patient) 27 years old female presents today with mild abdominal cramps of the lower abdomen, did not have any. Since October. Home tests were negative. Denies any vaginal discharges. Denies any dysuria frequency urgency. Denies any fever chills or other constitutional symptoms Onset: Gradual Duration: Last few days Severity: Mild Quality: Crampy Context: Unknown Exacerbating factor and relieving factors: Unknown REVIEW OF SYSTEMS: CONSTITUTIONAL : Denies fever, chills, or sweats. Denies recent illness. EENT: Denies eye, ear, throat, or mouth pain or symptoms. Denies nasal or sinus congestion or discharge. Denies throat, tongue, or mouth swelling or difficulty swallowing. CARDIOVASCULAR: Denies chest pain. Denies palpitations or racing or irregular heart beat. Denies ankle edema. RESPIRATORY: Denies cough, cold, or chest congestion. Denies shortness of breath, difficulty breathing, or wheezing. GASTROINTESTINAL: Denies distention. Denies nausea, vomiting, or diarrhea. Denies blood in vomitus, stools, or per rectum. Denies black, tarry stools. Denies constipation. GENITOURINARY: Denies difficulty urinating, painful urination, burning, frequency, blood in urine, or discharge. FEMALE GENITOURINARY: Denies vaginal bleeding, heavy or abnormal periods, irregular periods. Denies vaginal discharge or odor. MUSCULOSKELETAL: Denies back or neck pain or stiffness. Denies joint pain or swelling. SKIN: Denies rash, lesions or sores. HEMATOLOGIC : Denies easy bruising or bleeding. LYMPHATIC: Denies swollen, enlarged glands. NEUROLOGICAL: Denies confusion or altered mental status. Denies passing out or loss of consciousness. Denies dizziness or lightheadedness. Denies headache. Denies weakness or paralysis or loss of use of either side. Denies problems with gait or speech. Denies sensory loss, numbness, or tingling. Denies seizures. PSYCHIATRIC: Denies anxiety or stress. Denies depression, suicidal ideation, or homicidal ideation. ALL OTHER SYSTEMS REVIEWED AND NEGATIVE. PHYSICAL EXAMINATION: GENERAL: Well-appearing, well-nourished and in no acute distress. Morbid obesity HEAD: Atraumatic, normocephalic. EYES: Pupils equal round and reactive to light, extraocular movements intact, conjunctiva are normal. ENT: Nares patent, oropharynx clear without exudates. Moist mucous membranes. NECK: Normal range of motion, supple without lymphadenopathy LUNGS: Breath sounds clear to auscultation bilaterally and equal. No wheezes rales or rhonchi. HEART: Regular rate and rhythm without murmurs ABDOMEN: Soft, nontender, nondistended abdomen. No guarding, no rebound. No masses appreciated. Examination of genitals-deferred Musculoskeletal: Normal range of motion, no pitting or edema. No cyanosis. NEUROLOGICAL: Cranial nerves grossly intact. Normal speech, normal gait. Normal sensory, motor exams PSYCH: Normal mood, normal affect. SKIN: Warm, Dry, normal turgor, no rashes or lesions noted. Dictation was performed using [employer] voice recognition software TRAVEL OUTSIDE OF THE [place] IN LAST 30 DAYS: No - Related Data Allergies/Adverse Reactions: No Known Allergies Allergy (Verified 03/28/17 06:57) Past Medical History - Social History Smoking Status: Never Smoker Chew tobacco use (# tins/day): No Frequency of alcohol use: None Family History: Reviewed & Not Pertinent Patient has suicidal ideation: No Patient has homicidal ideation: No Neurological Medical History: Reports: Hx Migraine Renal/ Medical History: Reports: Hx Ovarian Cysts. Denies: Hx Peritoneal Dialysis - Immunizations Immunizations up to date: Yes Hx Diphtheria, Pertussis, Tetanus Vaccination: Yes Physical Exam - Vital signs Vitals: Temp Pulse Resp BP Pulse Ox 98.7 F 99 16 150/92 H 96 12/13/17 18:44 12/13/17 18:44 12/13/17 18:44 12/13/17 18:44 12/13/17 18:44 Course - Vital Signs Vital signs: Temp Pulse Resp BP Pulse Ox 98.7 F 99 16 150/92 H 96 12/13/17 18:44 12/13/17 18:44 12/13/17 18:44 12/13/17 18:44 12/13/17 18:44 Discharge - Discharge Referrals: ABIMAEL THOMASON MD [Primary Care Provider] - Follow up as needed
--- NOTE | 2017-12-13 19:40 | ER Document Report ---
ED GI/ <DEEPIKA CHARLES - Last Filed: 12/13/17 20:45> - General Mode of Arrival: Ambulatory Information source: Patient TRAVEL OUTSIDE OF THE [place] IN LAST 30 DAYS: No <MILTON LARSON - Last Filed: 12/13/17 23:33> - General Chief Complaint: Abdominal Pain Stated Complaint: ABDOMINAL CRAMPING Time Seen by Provider: 12/13/17 18:52 Notes: 27-year-old female presenting to the emergency department today with complaints of lower abdominal cramping off and on for the last 4 weeks. Patient states her last menstrual period was October 20 and she is normally very regular. Patient was given methotrexate in 2013 for an ectopic . Patient denies any vaginal discharge constipation. (MILTON LARSON) - Related Data Allergies/Adverse Reactions: No Known Allergies Allergy (Verified 03/28/17 06:57) Past Medical History - General Information source: Patient - Social History Smoking Status: Never Smoker Cigarette use (# per day): No Chew tobacco use (# tins/day): No Frequency of alcohol use: None Drug Abuse: None Lives with: Family Family History: Reviewed & Not Pertinent Patient has suicidal ideation: No Patient has homicidal ideation: No Neurological Medical History: Reports: Hx Migraine Renal/ Medical History: Reports: Hx Ovarian Cysts Surgical Hx: Negative - Immunizations Immunizations up to date: Yes Hx Diphtheria, Pertussis, Tetanus Vaccination: Yes <MILTON LARSON - Last Filed: 12/13/17 23:33> Review of Systems - Review of Systems Constitutional: No symptoms reported EENT: No symptoms reported Cardiovascular: No symptoms reported Respiratory: No symptoms reported Gastrointestinal: See HPI, Other - abdominal cramping, off/on x4 weeks. denies : Constipation Genitourinary: denies: Discharge Female Genitourinary: No symptoms reported Musculoskeletal: No symptoms reported Skin: No symptoms reported Hematologic/Lymphatic: No symptoms reported Neurological/Psychological: No symptoms reported -: Yes All other systems reviewed and negative <MILTON LARSON - Last Filed: 12/13/17 23:33> Physical Exam - Abdominal Inspection: Obese Distension: No distension Bowel sounds: Normal Tenderness: Tender - Patient is very tender in the lower abdomen pelvic region. She is equally tender in the right and left lower quadrants in the suprapubic pelvic area. <DEEPIKA CHARLES - Last Filed: 12/13/17 20:45> <MILTON LARSON - Last Filed: 12/13/17 23:33> - Vital signs Vitals: Temp Pulse Resp BP Pulse Ox 98.7 F 99 16 150/92 H 96 12/13/17 18:44 12/13/17 18:44 12/13/17 18:44 12/13/17 18:44 12/13/17 18:44 - Notes Notes: Physical Exam: General: Alert, appears well, morbidly obese. HEENT: Normocephalic. Atraumatic. PERRL. Extraocular movements intact. Oropharynx clear. Neck: Supple. Non-tender. Respiratory: No respiratory distress. Clear and equal breath sounds bilaterally. Cardiovascular: Regular rate and rhythm. Abdominal: Obese. Lower abdominal tenderness with palpation. No distension. Normal Bowel Sounds. Back: Non-tender. No deformity or step off. Extremities: Moves all four extremities. Upper extremities: Normal inspection. Normal ROM. Lower extremities: Normal inspection. No edema. Normal ROM. Neurological: Normal cognition. AAOx4. Normal speech. Psychological: Normal affect. Normal Mood. Skin: Warm. Dry. Normal color. (MILTON LARSON) Course <DEEPIKA CHARLES - Last Filed: 12/13/17 20:45> - Laboratory Result Diagrams: 12/13/17 19:16 12/13/17 19:16 <MILTON LARSON - Last Filed: 12/13/17 23:33> - Re-evaluation Re-evalutation: 12/13/17 20:46 Patient will be treated for a 3-4 week history of pelvic pain. GC chlamydia PCR testing will be obtained prior to administration of antibiotics. (DEEPIKA CHARLES) - Vital Signs Vital signs: Temp Pulse Resp BP Pulse Ox 98.3 F 78 18 128/74 H 100 12/13/17 21:56 12/13/17 21:56 12/13/17 21:56 12/13/17 21:56 12/13/17 21:56 - Laboratory Laboratory results interpreted by me: 12/13/17 19:16 Urine Ascorbic Acid 40 H Discharge <DEEPIKA CHARLES - Last Filed: 12/13/17 20:45> <MILTON LARSON - Last Filed: 12/13/17 23:33> - Discharge Clinical Impression: Pelvic pain Condition: Stable Disposition: HOME, SELF-CARE Additional Instructions: Pelvic Pain: There are many causes of pain in the pelvic area. The cause could be the tubes, ovaries, uterus, intestines, appendix, pelvic muscles and connective tissue, or the urinary tract. The cause of your pelvic pain is not clear. However, it seems safe to treat you outside the hospital. If the pain sounds like a temporary problem, we sometimes wait to see if it goes away. Other patients may need additional tests, such as pelvic ultrasound or cultures. Conditions may change. Call us or come back for reexamination if any problems occur, such as: (1) Pain that becomes more severe, steady, or becomes concentrated in one specific area. Also, pain that is more severe with movement or coughing. (2) Vomiting that persists or becomes more frequent. (3) Blood in the vomitus, urine, or bowel movements. Blood in the stool may have a tarry or black appearance. (4) Shaking chills or fever greater than 100 degrees. (5) The abdomen becomes more distended or swollen. (6) Bowel movements cease. (7) Heavy vaginal bleeding. Take Tylenol and ibuprofen for pelvic pain. You will be contacted if the STD testing of the urine comes back positive. [facility] with [facility] if not improving. RETURN TO THE EMERGENCY ROOM IF ANY NEW OR WORSENING SYMPTOMS. Referrals: ABIMAEL THOMASON MD [ACTIVE STAFF] - Follow up as needed August Attestation: 12/13/17 20:48 I personally performed the services described in the documentation, reviewed and edited the documentation which was dictated to the scribe in my presence, and it accurately records my words and actions. (DEEPIKA CHARLES) Scribe Documentation - Scribe Written by August:: August Rehman, 12/13/2017 2067 acting as scribe for :: Luann <MILTON LARSON - Last Filed: 12/13/17 23:33>
[2017-12-13 19:57] LABS: APPEARANCE,URINE CLEAR; BILIRUBIN,URINE NEGATIVE (NEGATIVE); COLOR,URINE YELLOW; GLUCOSE, URINE NEGATIVE (NEGATIVE); KETONES,URINE NEGATIVE (NEGATIVE); LEUKOCYTE ESTERASE,URINE NEGATIVE (NEGATIVE); NITRITE,URINE NEGATIVE (NEGATIVE); PROTEIN,URINE NEGATIVE (NEGATIVE); UROBILINOGEN,URINE NEGATIVE mg/dL (<2.0)
--- NOTE | 2017-12-13 20:38 | RADIOLOGY REPORT (SQ) ---
EXAM DESCRIPTION: KUB/ABDOMEN (SINGLE VIEW) COMPLETED DATE/TIME: 12/13/2017 8:27 pm REASON FOR STUDY: Abdominal pain COMPARISON: None. NUMBER OF VIEWS: Three views TECHNIQUE: Supine radiographic image of the abdomen acquired. LIMITATIONS: None. FINDINGS: BOWEL GAS PATTERN: Normal bowel gas pattern. No dilated loops. CALCIFICATIONS: No suspicious calcifications. SOFT TISSUES: No gross mass or suggestion of organomegaly. HARDWARE: None in the abdomen. BONES: No acute fracture. No worrisome bone lesions. OTHER: No other significant finding. IMPRESSION: NO RADIOGRAPHIC EVIDENCE FOR ACUTE ABDOMINAL DISEASE. TECHNICAL DOCUMENTATION: JOB ID: [id number] [employer]- All Rights Reserved Reading location - IP/workstation name: [email or web address]
[2017-12-13] MEDS ORDERED: AZITHROMYCIN 250 MG TABLET PO ONE (20:44)
[2017-12-13] MEDS ORDERED: LIDOCAINE 1% INJ-PF (10 MG/ML) 30 ML SDV INJ ONE (20:44)
[2017-12-13] MEDS ORDERED: CEFTRIAXONE INJ 1000 MG VIAL IM ONE (20:44)
[2017-12-13 20:57] LABS: ABSOLUTE EOSINOPHILS # (AUTO) 0.2 10^3/uL (0.0-0.6); ABSOLUTE LYMPHOCYTES (AUTO) 3.2 10^3/uL (0.5-4.7); ABSOLUTE MONOCYTES (AUTO) 0.6 10^3/uL (0.1-1.4); BASOPHILS % (AUTO) 0.4 % (0-2); EOSINOPHILS % (AUTO) 2.1 % (0-6); HEMATOCRIT 39.7 % (36.0-47.0); HEMOGLOBIN 13.5 g/dL (12.0-15.5); LYMPHOCYTES % (AUTO) 35.4 % (13-45); MEAN CORPUSCULAR HEMOGLOBIN 28.6 pg (27.0-33.4); MEAN CORPUSCULAR HGB CONC 33.9 g/dL (32.0-36.0); MEAN CORPUSCULAR VOLUME 84 fl (80-97); MONOCYTES % (AUTO) 6.6 % (3-13); PLATELET COUNT 232 10^3/uL (150-450); RED BLOOD COUNT 4.72 10^6/uL (3.72-5.28); RED CELL DISTRIBUTION WIDTH 13.9 % (11.5-14.0); SEGMENTED NEUTROPHILS % (AUTO) 55.5 % (42-78); TOTAL CELLS COUNTED % (AUTO) 100 %; WHITE BLOOD COUNT 8.9 10^3/uL (4.0-10.5)
[2017-12-13 21:04] LABS: ALANINE AMINOTRANSFERASE 23 U/L (9-52); ALBUMIN 4.5 g/dL (3.5-5.0); ALKALINE PHOSPHATASE 122 U/L (38-126); ANION GAP 16 (5-19); ASPARTATE AMINO TRANSFERASE 23 U/L (14-36); BILIRUBIN,DIRECT 0.3 mg/dL (0.0-0.4); BILIRUBIN,TOTAL 0.6 mg/dL (0.2-1.3); BLOOD UREA NITROGEN 16 mg/dL (7-20); CARBON DIOXIDE 24 mmol/L (22-30); CHLORIDE 101 mmol/L (98-107); GLUCOSE 87 mg/dL (75-110); POTASSIUM 4.5 mmol/L (3.6-5.0); SODIUM 140.9 mmol/L (137-145); TOTAL PROTEIN 8.2 g/dL (6.3-8.2)
[2017-12-13 21:57] VITALS: BP 128/74
[2017-12-13 23:10] LABS: CHLAM PCR NOT DETECTED (NOT DETECT); GON PCR NOT DETECTED (NOT DETECT)
== END 2017-12-13 21:58 | disposition home or self-care (01) ==
LOC: ER 18:39
DX: R10.2 Pelvic and perineal pain (principal); R10.813 Right lower quadrant abdominal tenderness; R10.814 Left lower quadrant abdominal tenderness; Z87.59 Personal history of other complications of pregnancy, childbirth and the puerperium; Z87.42 Personal history of other diseases of the female genital tract
CPT/HCPCS: 99284; 96372; 36415; 84703; 85025; 80053; 81001; 87491; 87591; 74018; J3490; J0696

== ENCOUNTER 2018-01-17 05:54 | Emergency (ER) | payer OTHER ==
--- NOTE | 2018-01-17 06:12 | ER Document Report ---
ED General - General Chief Complaint: Abdominal Pain Stated Complaint: ABDOMINAL PAIN Time Seen by Provider: 01/17/18 06:12 TRAVEL OUTSIDE OF THE [place] IN LAST 30 DAYS: No - HPI Patient complains to provider of: Right upper quadrant pain Notes: 27-year-old obese -[place] female presents with 2 hours of 10/10 right upper quadrant sharp pain with radiation to her back. Has been associated with increasing nausea. Patient has her gallbladder and her appendix. No history of abdominal surgeries. Denies fever chills. - Related Data Allergies/Adverse Reactions: No Known Allergies Allergy (Verified 03/28/17 06:57) Past Medical History - Social History Smoking Status: Unknown if Ever Smoked Family History: Reviewed & Not Pertinent Neurological Medical History: Reports: Hx Migraine Renal/ Medical History: Reports: Hx Ovarian Cysts. Denies: Hx Peritoneal Dialysis - Immunizations Immunizations up to date: Yes Hx Diphtheria, Pertussis, Tetanus Vaccination: Yes Review of Systems - Review of Systems Notes: REVIEW OF SYSTEMS: CONSTITUTIONAL: -fevers, -chills EENT: -eye pain, -difficulty swallowing, -nasal congestion CARDIOVASCULAR: -chest pain, -syncope. RESPIRATORY: -cough, -SOB GASTROINTESTINAL: + abdominal pain, +nausea, -vomiting, -diarrhea GENITOURINARY: -dysuria, -hematuria MUSCULOSKELETAL: -back pain, -neck pain SKIN: -rash or skin lesions. HEMATOLOGIC: -easy bruising or bleeding. LYMPHATIC: -swollen, enlarged glands. NEUROLOGICAL: -altered mental status or loss of consciousness, -headache, - neurologic symptoms PSYCHIATRIC: -anxiety, -depression. ALL OTHER SYSTEMS REVIEWED AND NEGATIVE. Physical Exam - Vital signs Vitals: Temp Pulse Resp BP Pulse Ox 98.4 F 91 18 147/103 H 96 01/17/18 05:55 01/17/18 05:55 01/17/18 05:55 01/17/18 05:55 01/17/18 05:55 - Notes Notes: REVIEW OF SYSTEMS: CONSTITUTIONAL: -fevers, -chills EENT: -eye pain, -difficulty swallowing, -nasal congestion CARDIOVASCULAR: -chest pain, -syncope. RESPIRATORY: -cough, -SOB GASTROINTESTINAL: +abdominal pain, +nausea, -vomiting, -diarrhea GENITOURINARY: -dysuria, -hematuria MUSCULOSKELETAL: -back pain, -neck pain SKIN: -rash or skin lesions. HEMATOLOGIC: -easy bruising or bleeding. LYMPHATIC: -swollen, enlarged glands. NEUROLOGICAL: -altered mental status or loss of consciousness, -headache, - neurologic symptoms PSYCHIATRIC: -anxiety, -depression. ALL OTHER SYSTEMS REVIEWED AND NEGATIVE. Course - Re-evaluation Re-evalutation: 01/17/18 09:24 Pleasant 27-year-old female presents with concerning physical exam for possible gallbladder disease. Patient has no leukocytosis, liver enzymes normal, normal alk phos other labs all within normal limits. Patient's ultrasound shows no apparent cholecystic fluid or wall edema, only some sludge. Patient feeling much improved at this time. Patient will follow-up outpatient with surgery. Given oral analgesia and antiemetics. Strict return precautions. - Vital Signs Vital signs: Temp Pulse Resp BP Pulse Ox 98.4 F 91 18 147/103 H 96 01/17/18 05:55 01/17/18 05:55 01/17/18 05:55 01/17/18 05:55 01/17/18 05:55 - Laboratory Result Diagrams: 01/17/18 06:14 01/17/18 06:14 Laboratory results interpreted by me: 01/17/18 01/17/18 01/17/18 06:14 06:14 08:00 RDW 14.3 H Sodium 145.4 H Urine Blood LARGE H Discharge - Discharge Clinical Impression: Sludge in gallbladder Condition: Stable Disposition: HOME, SELF-CARE Instructions: Abdominal Pain ([facility]) Prescriptions: Ondansetron [Zofran Odt 4 mg Tablet] 1 - 2 tab PO Q4H PRN #15 tab.rapdis PRN Reason: For Nausea/Vomiting Oxycodone HCl [Oxycontin Ir 5 Mg Tablet] 1 - 2 mg PO Q4H PRN #15 tablet PRN Reason: For Pain Referrals: ELY COSTA MD [ACTIVE STAFF] - Follow up as needed
[2018-01-17] MEDS ORDERED: MORPHINE SULFATE 10 MG/ML INJ IV ONE (06:15)
[2018-01-17] MEDS ORDERED: METOCLOPRAMIDE HCL INJ/PF 10 MG/2 ML SDV IV ONE (06:15)
[2018-01-17] MEDS ORDERED: NORMAL SALINE 1000 ML 1,000 ML IV ONE (06:15)
[2018-01-17] MEDS ORDERED: DIPHENHYDRAMINE HCL 50 MG/ML VIAL IV ONE (06:15)
[2018-01-17 06:26] LABS: ABSOLUTE EOSINOPHILS # (AUTO) 0.1 10^3/uL (0.0-0.6); ABSOLUTE LYMPHOCYTES (AUTO) 2.3 10^3/uL (0.5-4.7); ABSOLUTE MONOCYTES (AUTO) 0.5 10^3/uL (0.1-1.4); ABSOLUTE NEUT (AUTO) 5.8 10^3/uL (1.7-8.2); BASOPHILS % (AUTO) 0.2 % (0-2); EOSINOPHILS % (AUTO) 1.5 % (0-6); HEMATOCRIT 38.6 % (36.0-47.0); HEMOGLOBIN 12.9 g/dL (12.0-15.5); MEAN CORPUSCULAR HEMOGLOBIN 28.1 pg (27.0-33.4); MEAN CORPUSCULAR HGB CONC 33.5 g/dL (32.0-36.0); MEAN CORPUSCULAR VOLUME 84 fl (80-97); MONOCYTES % (AUTO) 6.2 % (3-13); PLATELET COUNT 213 10^3/uL (150-450); RED CELL DISTRIBUTION WIDTH 14.3 % (11.5-14.0); SEGMENTED NEUTROPHILS % (AUTO) 66.1 % (42-78); TOTAL CELLS COUNTED % (AUTO) 100 %; WHITE BLOOD COUNT 8.8 10^3/uL (4.0-10.5)
[2018-01-17 06:39] LABS: ALANINE AMINOTRANSFERASE 18 U/L (9-52); ALBUMIN 4.3 g/dL (3.5-5.0); ALKALINE PHOSPHATASE 116 U/L (38-126); ANION GAP 14 (5-19); ASPARTATE AMINO TRANSFERASE 17 U/L (14-36); BILIRUBIN,DIRECT 0.2 mg/dL (0.0-0.4); BILIRUBIN,TOTAL 0.4 mg/dL (0.2-1.3); BLOOD UREA NITROGEN 17 mg/dL (7-20); CALCIUM 9.9 mg/dL (8.4-10.2); CARBON DIOXIDE 24 mmol/L (22-30); CHLORIDE 107 mmol/L (98-107); GLUCOSE 93 mg/dL (75-110); LIPASE 129.6 U/L (23-300); POTASSIUM 4.6 mmol/L (3.6-5.0); SODIUM 145.4 mmol/L (137-145); TOTAL PROTEIN 7.9 g/dL (6.3-8.2)
[2018-01-17 08:50] LABS: APPEARANCE,URINE CLEAR; BILIRUBIN,URINE NEGATIVE (NEGATIVE); COLOR,URINE STRAW; GLUCOSE, URINE NEGATIVE (NEGATIVE); KETONES,URINE NEGATIVE (NEGATIVE); LEUKOCYTE ESTERASE,URINE NEGATIVE (NEGATIVE); NITRITE,URINE NEGATIVE (NEGATIVE); PROTEIN,URINE NEGATIVE (NEGATIVE); URINE SPECIFIC GRAVITY 1.011; UROBILINOGEN,URINE NEGATIVE mg/dL (<2.0)
--- NOTE | 2018-01-17 08:51 | RADIOLOGY REPORT (SQ) ---
EXAM DESCRIPTION: U/S ABDOMEN LIMITED W/O DOP COMPLETED DATE/TIME: 01/17/2018 8:14 am REASON FOR STUDY: ruq pain COMPARISON: KUB 12/13/2017 TECHNIQUE: Dynamic and static grayscale images acquired of the abdomen and recorded on PACS. Additio nal selected color Doppler and spectral images recorded. LIMITATIONS: Midline bowel gas FINDINGS: PANCREAS: Midline pancreas unremarkable LIVER: No masses. Echotexture normal. LIVER VASCULATURE: Normal directional flow of the main portal vein and hepatic veins. GALLBLADDER: Small stones are present in the gallbladder. Gallbladder sludge. No gallbladder wall t hickening or pericholecystic fluid. ULTRASOUND-DETECTED GUIDO'S SIGN: Negative. INTRAHEPATIC DUCTS AND COMMON DUCT: CBD and intrahepatic ducts normal caliber. No filling defects. INFERIOR VENA CAVA: Normal flow. AORTA: No aneurysm. RIGHT KIDNEY: Normal size. Normal echogenicity. No solid or suspicious masses. No hydronephrosis. No calcifications. PERITONEAL AND RIGHT PLEURAL SPACE: No ascites or effusions. OTHER: No other significant findings. IMPRESSION: Stones and sludge in the gallbladder. No gallbladder wall thickening or pericholecystic fluid TECHNICAL DOCUMENTATION: JOB ID: [id number] [employer]- All Rights Reserved Reading location - IP/workstation name: [email or web address]
[2018-01-17 09:55] VITALS: BP 106/79
== END 2018-01-17 09:56 | disposition home or self-care (01) ==
LOC: ER 05:54
DX: K83.9 Disease of biliary tract, unspecified (principal); R10.9 Unspecified abdominal pain; R10.11 Right upper quadrant pain; M54.9 Dorsalgia, unspecified; R11.0 Nausea
CPT/HCPCS: 99284; 96361; 96374; 96375; 36415; 83605; 83690; 85025; 80053; 81001; 76705; J1200; J2765; J2270; J7030

== ENCOUNTER 2018-02-11 22:01 | Emergency (ER) | payer OTHER ==
[2018-02-11] MEDS ORDERED: MORPHINE SULFATE 10 MG/ML INJ IV ONE (22:22)
[2018-02-11] MEDS ORDERED: ONDANSETRON HCL INJ/PF 4 MG/2 ML SDV IV ONE (22:22)
[2018-02-11] MEDS ORDERED: FAMOTIDINE INJ/PF 20 MG/2 ML SDV IV ONE (22:23)
[2018-02-11 22:42] LABS: ABSOLUTE EOSINOPHILS # (AUTO) 0.2 10^3/uL (0.0-0.6); ABSOLUTE LYMPHOCYTES (AUTO) 3.6 10^3/uL (0.5-4.7); ABSOLUTE MONOCYTES (AUTO) 0.7 10^3/uL (0.1-1.4); ABSOLUTE NEUT (AUTO) 6.3 10^3/uL (1.7-8.2); BASOPHILS % (AUTO) 0.4 % (0-2); EOSINOPHILS % (AUTO) 1.8 % (0-6); HEMATOCRIT 39.5 % (36.0-47.0); HEMOGLOBIN 13.4 g/dL (12.0-15.5); MEAN CORPUSCULAR HEMOGLOBIN 28.5 pg (27.0-33.4); MEAN CORPUSCULAR HGB CONC 33.9 g/dL (32.0-36.0); MEAN CORPUSCULAR VOLUME 84 fl (80-97); MONOCYTES % (AUTO) 6.8 % (3-13); PLATELET COUNT 235 10^3/uL (150-450); TOTAL CELLS COUNTED % (AUTO) 100 %; WHITE BLOOD COUNT 10.8 10^3/uL (4.0-10.5)
[2018-02-11] MEDS ORDERED: NORMAL SALINE 1000 ML 1,000 ML IV ONE ×2 (22:43)
--- NOTE | 2018-02-11 23:04 | ER Document Report ---
ED General - General Chief Complaint: Abdominal Pain Stated Complaint: POSSIBLE GALLBLADDER PAIN Time Seen by Provider: 02/11/18 22:20 TRAVEL OUTSIDE OF THE [place] IN LAST 30 DAYS: No - HPI Patient complains to provider of: Abdominal pain Notes: Patient coming in for acute right upper quadrant abdominal pain epigastric pain after eating chicken wrap at night. Patient has a history of gallbladder sludging gallstones. Patient denies any fevers chills patient is IV drug use states she has been vomiting at home no diarrhea no trauma no recent antibiotics patient denies being at this time. Patient looks uncomfortable but no signs of toxemia upon my evaluation - Related Data Allergies/Adverse Reactions: No Known Allergies Allergy (Verified 03/28/17 06:57) Past Medical History - Social History Smoking Status: Current Every Day Smoker Chew tobacco use (# tins/day): No Frequency of alcohol use: None Drug Abuse: None Family History: Reviewed & Not Pertinent Patient has suicidal ideation: No Patient has homicidal ideation: No Neurological Medical History: Reports: Hx Migraine Renal/ Medical History: Reports: Hx Ovarian Cysts. Denies: Hx Peritoneal Dialysis - Immunizations Immunizations up to date: Yes Hx Diphtheria, Pertussis, Tetanus Vaccination: Yes Review of Systems - Review of Systems Constitutional: No symptoms reported EENT: No symptoms reported Cardiovascular: No symptoms reported Respiratory: No symptoms reported Gastrointestinal: Abdominal pain, Nausea, Vomiting Genitourinary: No symptoms reported Female Genitourinary: No symptoms reported Musculoskeletal: No symptoms reported Skin: No symptoms reported Hematologic/Lymphatic: No symptoms reported Neurological/Psychological: No symptoms reported -: Yes All other systems reviewed and negative Physical Exam - Vital signs Vitals: Temp Pulse Resp BP Pulse Ox 98.1 F 110 H 28 H 123/86 H 99 02/11/18 22:04 02/11/18 22:04 02/11/18 22:04 02/11/18 22:04 02/11/18 22:04 Interpretation: Normal - General General appearance: Appears well, Alert - HEENT Head: Normocephalic, Atraumatic Eyes: Normal Pupils: PERRL - Respiratory Respiratory status: No respiratory distress Chest status: Nontender Breath sounds: Normal Chest palpation: Normal - Cardiovascular Rhythm: Regular Heart sounds: Normal auscultation Murmur: No - Abdominal Inspection: Obese Distension: No distension Bowel sounds: Normal Tenderness: Tender - Diffuse upper abdominal pain Organomegaly: No organomegaly - Back Back: Normal, Nontender - Extremities General upper extremity: Normal inspection, Nontender, Normal color, Normal ROM , Normal temperature General lower extremity: Normal inspection, Nontender, Normal color, Normal ROM , Normal temperature, Normal weight bearing. No: Ban's sign - Neurological Neuro grossly intact: Yes Cognition: Normal Orientation: AAOx4 Mikala Coma Scale Eye Opening: Spontaneous Mikala Coma Scale Verbal: Oriented [place] Coma Scale Motor: Obeys Commands Mikala Coma Scale Total: 15 Speech: Normal Motor strength normal: LUE, RUE, LLE, RLE Sensory: Normal - Psychological Associated symptoms: Normal affect, Normal mood - Skin Skin Temperature: Warm Skin Moisture: Dry Skin Color: Normal Course - Re-evaluation Re-evalutation: 02/11/18 23:04 Reviewed the patient's previous ultrasound does confirm sludge and gallstones. We will repeat an ultrasound tonight also had a lipase concern for possible gallstone pancreatitis acute cholecystitis patient will be made n.p.o. 02/12/18 04:43 The patient presents with abdominal pain without signs of peritonitis or other life-threatening or serious etiology. The patient appears stable for discharge and has been instructed to return immediately if the symptoms worsen in any way , or in 8-12hr if not improved for re-evaluation. The patient has been instructed to return if the symptoms worsen or change in any way. Patient was educated about diet control for her gallstones. States understanding no signs of acute cholecystitis or any obstructing etiology. Patient was discharged home follow-up with her surgeon. - Vital Signs Vital signs: Temp Pulse Resp BP Pulse Ox 98.1 F 110 H 16 131/89 H 98 02/11/18 22:04 02/11/18 22:04 02/12/18 00:00 02/12/18 00:01 02/12/18 00:01 - Laboratory Result Diagrams: 02/11/18 22:28 02/11/18 22:28 Laboratory results interpreted by me: 02/11/18 02/11/18 02/11/18 22:28 22:28 22:28 WBC 10.8 H RDW 15.0 H Lactic Acid 2.3 H AST 38 H Alkaline Phosphatase 129 H Discharge - Discharge Clinical Impression: Cholelithiasis Qualifiers: Cholelithiasis location: gallbladder Cholecystitis presence: without cholecystitis Biliary obstruction: without biliary obstruction Qualified Code(s) : K80.20 - Calculus of gallbladder without cholecystitis without obstruction Abdominal pain Qualifiers: Abdominal location: upper abdomen, unspecified Qualified Code(s): R10.10 - Upper abdominal pain, unspecified Condition: Good Disposition: HOME, SELF-CARE Instructions: Abdominal Pain ([facility]), Clear Liquid Diet ([facility]), Low-Fat Diet ([facility]) Additional Instructions: Your evaluation today shows that your gallbladder has gallstones however gallbladder is not inflamed or infected. More likely the food that she ate tonight caused her abdominal pain. However recommend sticking to a clear liquid diet for the next 24 hours then advancing to a bland diet full starchy foods you must avoid foods that are fried greasy or oily. I would highly recommend following up with her surgical clinic or having your PCP refer you to a surgeon. Take pain medication as prescribed recommend Tylenol Motrin for regular pain Ultram as prescribed for severe pain Prescriptions: Ibuprofen [Motrin 600 mg Tablet] 600 mg PO Q8HP PRN #21 tablet PRN Reason: Ondansetron [Zofran Odt] 4 mg PO Q6 PRN #30 tab.rapdis PRN Reason: For Nausea/Vomiting Tramadol HCl [Ultram 50 mg Tablet] 50 mg PO ASDIR PRN #20 tablet PRN Reason: Forms: Return to Work
[2018-02-11 23:06] LABS: ALANINE AMINOTRANSFERASE 28 U/L (9-52); ALBUMIN 4.4 g/dL (3.5-5.0); ALKALINE PHOSPHATASE 129 U/L (38-126); ANION GAP 11 (5-19); ASPARTATE AMINO TRANSFERASE 38 U/L (14-36); BILIRUBIN,DIRECT 0.3 mg/dL (0.0-0.4); BILIRUBIN,TOTAL 0.5 mg/dL (0.2-1.3); BLOOD UREA NITROGEN 10 mg/dL (7-20); CALCIUM 9.8 mg/dL (8.4-10.2); CARBON DIOXIDE 25 mmol/L (22-30); CHLORIDE 105 mmol/L (98-107); GLUCOSE 80 mg/dL (75-110); LIPASE 151.2 U/L (23-300); POTASSIUM 4.3 mmol/L (3.6-5.0); SODIUM 141.4 mmol/L (137-145)
[2018-02-11] MEDS ORDERED: HYDROMORPHONE HCL INJ/PF 2 MG/ML AMPULE IV ONE (23:32)
--- NOTE | 2018-02-12 01:13 | RADIOLOGY REPORT (SQ) ---
EXAM DESCRIPTION: US ABDOMEN LIMITED COMPLETED DATE/TME: 02/11/2018 22:43 CLINICAL HISTORY: 28 years Female, ruq pain Comparison: 8.31.18 LIMITATIONS: None. FINDINGS: Cholelithiasis, negative sonographic Betts's test, 20 cm hepatomegaly, mild hepatic steatosis, a -cm diameter common bile duct, no intrahepatic ductal dilation, 13-cm right kidney, partially obscured pancreas, visualized vasculature/abdominal aorta, and no significant ascites appear otherwise unremarkable. IMPRESSION: 1. Mild hepatomegaly. Mild hepatic steatosis. 2. Cholelithiasis.
[2018-02-12 01:30] VITALS: BP 131/89
== END 2018-02-12 02:42 | disposition home or self-care (01) ==
LOC: ER 22:01
DX: K80.20 Calculus of gallbladder without cholecystitis without obstruction (principal); R10.11 Right upper quadrant pain; R10.13 Epigastric pain; F17.200 Nicotine dependence, unspecified, uncomplicated; R11.2 Nausea with vomiting, unspecified
CPT/HCPCS: 99284; 96361; 96374; 96375; 36415; 83605; 83690; 84703; 85025; 80053; 76705; J2270; J1170; J2405; S0028

== ENCOUNTER 2018-02-14 17:36 | Emergency (ER) | payer OTHER ==
[2018-02-14] MEDS ORDERED: ONDANSETRON HCL INJ/PF 4 MG/2 ML SDV IV ONE ×2 (17:54→19:58)
[2018-02-14] MEDS ORDERED: KETOROLAC TROMETHAMINE INJ/PF 30 MG/1 ML SDV IV ONE (17:54)
[2018-02-14] MEDS ORDERED: NORMAL SALINE 1000 ML 1,000 ML IV ONE (17:54)
--- NOTE | 2018-02-14 17:56 | ER Document Report ---
ED Medical Screen (RME) - General Chief Complaint: Abdominal Pain Stated Complaint: ABDOMINAL PAIN Time Seen by Provider: 02/14/18 17:50 Notes: 28 years old female with a known history of gallstone and gallbladder sludge, waiting to have cholecystectomy done, developed sharp pain right over the right upper quadrant radiating all the way to the back since Saturday that he 3 days ago. Associated with nausea. Denies any fever chills. On examination sharp right upper quadrant tenderness noted- TRAVEL OUTSIDE OF THE [place] IN LAST 30 DAYS: No - Related Data Allergies/Adverse Reactions: No Known Allergies Allergy (Verified 03/28/17 06:57) Past Medical History - Social History Chew tobacco use (# tins/day): No Frequency of alcohol use: None Drug Abuse: None Family history: None Neurological Medical History: Reports: Hx Migraine Renal/ Medical History: Reports: Hx Ovarian Cysts. Denies: Hx Peritoneal Dialysis - Immunizations Immunizations up to date: Yes Hx Diphtheria, Pertussis, Tetanus Vaccination: Yes History of Influenza Vaccine for 02/2017 - 07/2017 Season: Refused Physical Exam - Vital signs Vitals: Temp Pulse Resp BP Pulse Ox 98.2 F 83 16 145/103 H 99 02/14/18 17:41 02/14/18 17:41 02/14/18 17:41 02/14/18 17:41 02/14/18 17:41 Course - Vital Signs Vital signs: Temp Pulse Resp BP Pulse Ox 98.2 F 83 16 145/103 H 99 02/14/18 17:41 02/14/18 17:41 02/14/18 17:41 02/14/18 17:41 02/14/18 17:41
[2018-02-14 18:33] LABS: ABSOLUTE EOSINOPHILS # (AUTO) 0.3 10^3/uL (0.0-0.6); ABSOLUTE LYMPHOCYTES (AUTO) 1.8 10^3/uL (0.5-4.7); ABSOLUTE MONOCYTES (AUTO) 0.4 10^3/uL (0.1-1.4); ABSOLUTE NEUT (AUTO) 3.3 10^3/uL (1.7-8.2); BASOPHILS % (AUTO) 0.4 % (0-2); EOSINOPHILS % (AUTO) 4.6 % (0-6); HEMATOCRIT 37.8 % (36.0-47.0); HEMOGLOBIN 12.6 g/dL (12.0-15.5); LYMPHOCYTES % (AUTO) 30.8 % (13-45); MEAN CORPUSCULAR HEMOGLOBIN 28.2 pg (27.0-33.4); MEAN CORPUSCULAR HGB CONC 33.3 g/dL (32.0-36.0); MEAN CORPUSCULAR VOLUME 85 fl (80-97); PLATELET COUNT 219 10^3/uL (150-450); RED BLOOD COUNT 4.47 10^6/uL (3.72-5.28); RED CELL DISTRIBUTION WIDTH 15.3 % (11.5-14.0); SEGMENTED NEUTROPHILS % (AUTO) 57.2 % (42-78); TOTAL CELLS COUNTED % (AUTO) 100 %; WHITE BLOOD COUNT 5.8 10^3/uL (4.0-10.5)
[2018-02-14 18:49] LABS: ALANINE AMINOTRANSFERASE 373 U/L (9-52); ALBUMIN 4.2 g/dL (3.5-5.0); ALKALINE PHOSPHATASE 343 U/L (38-126); ANION GAP 8 (5-19); ASPARTATE AMINO TRANSFERASE 223 U/L (14-36); BILIRUBIN,DIRECT 3.1 mg/dL (0.0-0.4); BILIRUBIN,TOTAL 4.3 mg/dL (0.2-1.3); BLOOD UREA NITROGEN 3 mg/dL (7-20); CALCIUM 9.2 mg/dL (8.4-10.2); CARBON DIOXIDE 28 mmol/L (22-30); CHLORIDE 105 mmol/L (98-107); GLUCOSE 101 mg/dL (75-110); LIPASE 92.7 U/L (23-300); POTASSIUM 4.1 mmol/L (3.6-5.0); SODIUM 140.9 mmol/L (137-145); TOTAL PROTEIN 7.7 g/dL (6.3-8.2)
--- NOTE | 2018-02-14 19:06 | RADIOLOGY REPORT (SQ) ---
EXAM DESCRIPTION: U/S ABDOMEN LIMITED W/O DOP COMPLETED DATE/TIME: 02/14/2018 6:38 pm REASON FOR STUDY: Gallstones/abdominal pain COMPARISON: 02/12/2018 TECHNIQUE: Dynamic and static grayscale images acquired of the abdomen and recorded on PACS. Ingrid ontiveros selected color Doppler and spectral images recorded. LIMITATIONS: None. FINDINGS: PANCREAS: No masses. Visualized pancreatic duct normal caliber. LIVER: No masses. Echotexture normal. LIVER VASCULATURE: Normal directional flow of the main portal vein and hepatic veins. GALLBLADDER: The gallbladder appears hydropic demonstrating mild mural thickening and layering gallst ones. No pericholecystic fluid. ULTRASOUND-DETECTED GUIDO'S SIGN: Positive. INTRAHEPATIC DUCTS AND COMMON DUCT: The common bile duct is dilated to 10 mm. No filling defect is s een on the images provided. INFERIOR VENA CAVA: Normal flow. AORTA: No aneurysm. RIGHT KIDNEY: Normal size. Normal echogenicity. No solid or suspicious masses. No hydronephrosis. No calcifications. PERITONEAL AND RIGHT PLEURAL SPACE: No ascites or effusions. OTHER: No other significant findings. IMPRESSION: Constellation of findings suggests early cholecystitis. Dilation of the common bile stephanie t to 10 mm without demonstrated filling defect. TECHNICAL DOCUMENTATION: JOB ID: [id number] [employer]- All Rights Reserved Reading location - IP/workstation name: [email or web address]
[2018-02-14] MEDS ORDERED: MORPHINE SULFATE 10 MG/ML INJ IV PRN (19:58)
[2018-02-14] MEDS ORDERED: PIPERACILLIN/TAZOBACTAM 3.375 GM VIAL IV ONE (19:58)
--- NOTE | 2018-02-14 20:02 | ER Document Report ---
ED General - General Chief Complaint: Abdominal Pain Stated Complaint: ABDOMINAL PAIN Time Seen by Provider: 02/14/18 17:50 Notes: Patient is a 28-year-old female without chronic medical problems who presents with 12-14 hours of continuous right upper quadrant and epigastric abdominal pain with associated nausea and vomiting. Patient has been seen multiple times in the emergency department for similar symptoms, diagnosis symptomatic cholelithiasis, although she notes that today the pain came on without eating and has been constant as opposed to intermittent. Nothing has improved or worsen the pain since onset. She has been unable to tolerate oral intake since onset of her symptoms. She has not been in for follow-up with surgery as an outpatient. She denies fever or constitutional symptoms. No history of this degree of pain or symptoms in the past. TRAVEL OUTSIDE OF THE [place] IN LAST 30 DAYS: No - Related Data Allergies/Adverse Reactions: No Known Allergies Allergy (Verified 03/28/17 06:57) Past Medical History - General Information source: Patient - Social History Smoking Status: Never Smoker Chew tobacco use (# tins/day): No Frequency of alcohol use: None Drug Abuse: None Lives with: Spouse/Significant other Family History: Reviewed & Not Pertinent Patient has suicidal ideation: No Patient has homicidal ideation: No Neurological Medical History: Reports: Hx Migraine Renal/ Medical History: Reports: Hx Ovarian Cysts. Denies: Hx Peritoneal Dialysis - Immunizations Immunizations up to date: Yes Hx Diphtheria, Pertussis, Tetanus Vaccination: Yes Review of Systems - Review of Systems Notes: Constitutional: Negative for fever. HENT: Negative for sore throat. Eyes: Negative for visual changes. Cardiovascular: Negative for chest pain. Respiratory: Negative for shortness of breath. Gastrointestinal: Positive for abdominal pain nausea and vomiting Genitourinary: Negative for dysuria. Musculoskeletal: Negative for back pain. Skin: Negative for rash. Neurological: Negative for headaches, weakness or numbness. 10 point ROS negative except as marked above and in HPI. Physical Exam - Vital signs Vitals: Temp Pulse Resp BP Pulse Ox 98.2 F 83 16 145/103 H 99 02/14/18 17:41 02/14/18 17:41 02/14/18 17:41 02/14/18 17:41 02/14/18 17:41 Interpretation: Hypertensive Notes: PHYSICAL EXAMINATION: GENERAL: Appears moderately uncomfortable but in no acute distress HEAD: Atraumatic, normocephalic. EYES: Pupils equal round and reactive to light, extraocular movements intact, sclera anicteric, conjunctiva are normal. ENT: nares patent, oropharynx clear without exudates. Moderately dry mucous membranes. NECK: Normal range of motion, supple without lymphadenopathy LUNGS: Breath sounds clear to auscultation bilaterally and equal. No wheezes rales or rhonchi. HEART: Regular rate and rhythm without murmurs ABDOMEN: Soft, focal tenderness of the right upper quadrant and epigastrium but no other localized areas of tenderness, normoactive bowel sounds. No guarding, no rebound. No masses appreciated. EXTREMITIES: Normal range of motion, no pitting or edema. No cyanosis. NEUROLOGICAL: No focal neurological deficits. Moves all extremities spontaneously and on command. PSYCH: Normal mood, normal affect. SKIN: Warm, Dry, normal turgor, no rashes or lesions noted. Course - Re-evaluation Re-evalutation: 02/14/18 20:00 Patient presents with labs, exam and ultrasound consistent with acute choledocholithiasis with likely associated early cholecystitis. Common bile duct is dilated 10 mm. LFT derangements are present that were not on the 25th of this month. The patient also has an elevated direct bilirubin at 3.1 which is again new relative to 3 days ago. On examination the patient has focal tenderness the right upper quadrant and epigastrium but no other localized areas of tenderness. Her vitals otherwise within normal limits. She has been made n.p.o. IV fluids, IV Zosyn, pain and nausea control have been initiated. The patient will require an ERCP which we do not have the capacity to do at this hospital. I have contacted [facility] and requested transfer. 02/14/18 20:44 I have discussed this case with the attending physician Dr. Penaloza at [facility] who is excepted the patient. The patient has received her medications and is feeling improved in terms of pain and nausea control. She remains n.p.o. Pending transport at this time. 02/15/18 0020 Patient remains hemodynamically stable. Pain is improved. She is appropriate for transport at this time. - Vital Signs Vital signs: Temp Pulse Resp BP Pulse Ox 97.9 F 69 16 132/82 H 97 02/15/18 00:15 02/15/18 00:15 02/15/18 00:15 02/15/18 00:15 02/15/18 00:15 - Laboratory Result Diagrams: 02/14/18 18:05 02/14/18 18:05 Laboratory results interpreted by me: 02/14/18 02/14/18 18:05 18:05 RDW 15.3 H BUN 3 L Total Bilirubin 4.3 H Direct Bilirubin 3.1 H AST 223 H ALT 373 H Alkaline Phosphatase 343 H - Diagnostic Test Radiology reviewed: Reports reviewed Discharge - Discharge Clinical Impression: Choledocholithiasis, Nausea, Upper abdominal pain Condition: Fair Disposition: [facility]
[2018-02-14] MEDS ORDERED: RINGERS SOLUTION,LACTATED 1,000 ML IV PRN (23:55)
[2018-02-15 00:16] VITALS: BP 132/82
== END 2018-02-15 00:22 | disposition short-term general hospital (02) ==
LOC: ER 17:36
DX: K80.20 Calculus of gallbladder without cholecystitis without obstruction (principal); R11.0 Nausea; R10.10 Upper abdominal pain, unspecified
CPT/HCPCS: 96376; 99285; 96361; 96375; 96365; 36415; 83690; 85025; 80053; 76705; J1885; J2270; J2405; J2543

== ENCOUNTER 2018-05-21 20:03 | Emergency (ER) | payer OTHER ==
[2018-05-21] MEDS ORDERED: ACETAMINOPHEN 325 MG TABLET PO ONE (20:14)
--- NOTE | 2018-05-21 22:02 | ER Document Report ---
ED ENT - General Chief Complaint: Sore Throat Stated Complaint: SORE THROAT,BODY ACHE,FEVER Time Seen by Provider: 05/21/18 22:02 Mode of Arrival: Ambulatory Information source: Patient Notes: Patient is a 28-year-old female with no significant past medical history who presents with 3-4 days of nonproductive cough, fever, body aches, and malaise. Patient denies known sick contacts. She does report taking her flu shot this year. She denies chest pain or shortness of breath, mild improvement with [id number]-[id number] medications. TRAVEL OUTSIDE OF THE [place] IN LAST 30 DAYS: No - HPI Patient complains to provider of: Throat problem Onset: Other - 3 days ago Onset/Duration: Gradual Quality of pain: Achy, Dull Severity: Mild Pain Level: Denies Context: Recent Illness Location of pain: Neck, Nose, Sinus, Throat Associated symptoms: Congestion, Cough, Fever, Headache, Runny nose, Sinus drainage Similar symptoms previously: No Recently seen / treated by doctor: No - Related Data Allergies/Adverse Reactions: No Known Allergies Allergy (Verified 03/28/17 06:57) Past Medical History - General Information source: Patient - Social History Smoking Status: Former Smoker Chew tobacco use (# tins/day): No Frequency of alcohol use: None Drug Abuse: None Lives with: Family Family History: Reviewed & Not Pertinent Patient has suicidal ideation: No Patient has homicidal ideation: No - Past Medical History Cardiac Medical History: Reports: None Pulmonary Medical History: Reports: None EENT Medical History: Reports: None Neurological Medical History: Reports: Hx Migraine Endocrine Medical History: Reports: None Renal/ Medical History: Reports: Hx Ovarian Cysts. Denies: Hx Peritoneal Dialysis Malignancy Medical History: Reports: None GI Medical History: Reports: None Musculoskeletal Medical History: Reports None Skin Medical History: Reports None Psychiatric Medical History: Reports: None Traumatic Medical History: Reports: None Infectious Medical History: Reports: None Surgical Hx: Negative Past Surgical History: Reports: None, Hx Cholecystectomy - jan 2018 - Immunizations Immunizations up to date: Yes Hx Diphtheria, Pertussis, Tetanus Vaccination: Yes History of Influenza Vaccine for 02/2017 - 07/2017 Season: Yes Review of Systems - Review of Systems Constitutional: See HPI, Fever, Malaise EENT: See HPI, Nose congestion, Sinus pressure, Throat pain, Difficulty sw allowing Cardiovascular: No symptoms reported Respiratory: See HPI, Cough Gastrointestinal: No symptoms reported Genitourinary: No symptoms reported Female Genitourinary: No symptoms reported Musculoskeletal: No symptoms reported Skin: No symptoms reported Hematologic/Lymphatic: No symptoms reported Neurological/Psychological: No symptoms reported -: Yes All other systems reviewed and negative Physical Exam - Vital signs Vitals: Temp Pulse Resp BP Pulse Ox 101.7 F H 117 H 20 145/100 H 100 05/21/18 20:11 05/21/18 20:11 05/21/18 20:11 05/21/18 20:11 05/21/18 20:11 Interpretation: Normal - Notes Notes: Well-appearing in no acute distress - General General appearance: Appears well, Alert - HEENT Head: Normocephalic, Atraumatic Eyes: Normal Pupils: PERRL - Respiratory Respiratory status: No respiratory distress Chest status: Nontender Breath sounds: Normal Chest palpation: Normal - Cardiovascular Rhythm: Regular Heart sounds: Normal auscultation Murmur: No - Abdominal Inspection: Normal Distension: No distension Bowel sounds: Normal Tenderness: Nontender Organomegaly: No organomegaly - Rectal Notes: Deferred - Genitourinary Notes: Deferred - Back Back: Normal, Nontender - Extremities General upper extremity: Normal inspection, Nontender, Normal color, Normal ROM, Normal temperature General lower extremity: Normal inspection, Nontender, Normal color, Normal ROM, Normal temperature, Normal weight bearing. No: Ban's sign - Neurological Neuro grossly intact: Yes Cognition: Normal Orientation: AAOx4 [place] Coma Scale Eye Opening: Spontaneous [place] Coma Scale Verbal: Oriented [place] Coma Scale Motor: Obeys Commands [place] Coma Scale Total: 15 Speech: Normal Motor strength normal: LUE, RUE, LLE, RLE Sensory: Normal - Psychological Associated symptoms: Normal affect, Normal mood - Skin Skin Temperature: Warm Skin Moisture: Dry Skin Color: Normal Course - Re-evaluation Re-evalutation: 05/22/18 00:36 Patient most likely has viral syndrome, too far out for empiric treatment of influenza. She will be given intramuscular Decadron and will be discharged home with return precautions and follow-up. Patient voices both understanding and agreeing with the plan. - Vital Signs Vital signs: Temp Pulse Resp BP Pulse Ox 101.2 F H 116 H 20 138/97 H 97 05/22/18 00:48 05/22/18 00:48 05/22/18 00:48 05/22/18 00:48 05/22/18 00:48 Discharge - Discharge Clinical Impression: Viral syndrome, Acute viral pharyngitis Condition: Good Disposition: HOME, SELF-CARE Instructions: Viral Syndrome ([facility]), Sore Throat ([facility]) Additional Instructions: Please follow-up with your primary physician as needed. Take your prescribed medications as instructed. Return to the emergency department if you experience uncontrolled fevers, difficulty breathing, or have any other concerning symptom. Prescriptions: Codeine Phosphate/Guaifenesin [Cheratussin AC Syrup] 10 ml PO Q6H PRN #[id number] liquid PRN Reason: Congestion Referrals: COLTEN SOTO PA [Primary Care Provider] - Follow up as needed Print Language: Divehi
[2018-05-22] MEDS ORDERED: DEXAMETHASONE SOD PHOS INJ 10 MG/1 ML VIAL IM ONE (00:39)
[2018-05-22 00:49] VITALS: BP 138/97
[2018-05-22] MEDS ORDERED: ACETAMINOPHEN 325 MG TABLET PO ONE (01:13)
== END 2018-05-22 01:22 | disposition home or self-care (01) ==
LOC: ER 20:03
DX: J02.9 Acute pharyngitis, unspecified (principal); B34.9 Viral infection, unspecified; M79.10 Myalgia, unspecified site; R50.9 Fever, unspecified; R53.81 Other malaise; R51 Headache; R09.89 Other specified symptoms and signs involving the circulatory and respiratory systems; Z87.891 Personal history of nicotine dependence
CPT/HCPCS: 99283; 96372; J1100

== ENCOUNTER 2018-07-25 15:26 | Emergency (ER) | payer OTHER ==
--- NOTE | 2018-07-25 15:58 | ER Document Report ---
ED Medical Screen (RME) - General Chief Complaint: Pelvic Pain Stated Complaint: PELVIC PAIN Time Seen by Provider: 07/25/18 15:56 Primary Care Provider: COLTEN SOTO PA [Primary Care Provider] - Follow up as needed Mode of Arrival: Ambulatory Information source: Patient Notes: This is a 28-year-old female, blood type O positive, 4 para 3, history of ectopic , last normal menstrual period June 01. Patient presents to the emergency room with a one-week history of pelvic pain. Patient does have a history of ovarian cysts. TRAVEL OUTSIDE OF THE [place] IN LAST 30 DAYS: No - Related Data Allergies/Adverse Reactions: No Known Allergies Allergy (Verified 07/25/18 15:29) Past Medical History - Social History Family history: None Neurological Medical History: Reports: Hx Migraine Renal/ Medical History: Reports: Hx Ovarian Cysts. Denies: Hx Peritoneal Dialysis Past Surgical History: Reports: Hx Cholecystectomy - jan 2018 - Immunizations Immunizations up to date: Yes Hx Diphtheria, Pertussis, Tetanus Vaccination: Yes History of Influenza Vaccine for 02/2017 - 07/2017 Season: Yes Physical Exam - Vital signs Vitals: Temp Pulse Resp BP Pulse Ox 99.0 F 90 20 134/86 H 97 07/25/18 15:31 07/25/18 15:31 07/25/18 15:31 07/25/18 15:31 07/25/18 15:31 Course - Vital Signs Vital signs: Temp Pulse Resp BP Pulse Ox 99.0 F 90 20 134/86 H 97 07/25/18 15:31 07/25/18 15:31 07/25/18 15:31 07/25/18 15:31 07/25/18 15:31 Doctor's Discharge - Discharge Referrals: COLTEN SOTO PA [Primary Care Provider] - Follow up as needed
--- NOTE | 2018-07-25 16:54 | ER Document Report ---
ED GI/ - General Chief Complaint: Pelvic Pain Stated Complaint: PELVIC PAIN Time Seen by Provider: 07/25/18 15:56 Primary Care Provider: COLTEN SOTO PA [Primary Care Provider] - Follow up as needed Mode of Arrival: Ambulatory Information source: Patient Notes: 28-year-old female presents to ED for complaint of pelvic pain with vaginal bleeding. Patient states the pelvic pain started 02 July and the vaginal bleeding started 12 July. She states she has had an ectopic in the past. She states she has been 4 times and has 3 children TRAVEL OUTSIDE OF THE [place] 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[employer] LMP: July 12 : 4 Para: 3 Abortions: 1 - Ectopic Associated symptoms: None Exacerbated by: Denies Relieved by: Denies Similar symptoms previously: Yes Recently seen / treated by doctor: No - Related Data Allergies/Adverse Reactions: No Known Allergies Allergy (Verified 07/25/18 15:29) Past Medical History - General Information source: Patient - Social History Smoking Status: Former Smoker Cigarette use (# per day): No Chew tobacco use (# tins/day): No Smoking Education Provided: No Frequency of alcohol use: None Drug Abuse: None Lives with: Family - son's Family History: Reviewed & Not Pertinent Patient has suicidal ideation: No Patient has homicidal ideation: No - Past Medical History Cardiac Medical History: Reports: None Pulmonary Medical History: Reports: None EENT Medical History: Reports: None Neurological Medical History: Reports: Hx Migraine Endocrine Medical History: Reports: None Renal/ Medical History: Reports: Hx Ovarian Cysts Malignancy Medical History: Reports: None GI Medical History: Reports: None Musculoskeletal Medical History: Reports None Skin Medical History: Reports None Psychiatric Medical History: Reports: None Traumatic Medical History: Reports: None Infectious Medical History: Reports: None Past Surgical History: Reports: Hx Cholecystectomy - jan 2018 - Immunizations Immunizations up to date: Yes Hx Diphtheria, Pertussis, Tetanus Vaccination: Yes Review of Systems - Review of Systems Constitutional: No symptoms reported EENT: No symptoms reported Cardiovascular: No symptoms reported Respiratory: No symptoms reported Gastrointestinal: No symptoms reported Genitourinary: No symptoms reported Musculoskeletal: No symptoms reported Skin: No symptoms reported Hematologic/Lymphatic: No symptoms reported Neurological/Psychological: No symptoms reported Physical Exam - Vital signs Vitals: Temp Pulse Resp BP Pulse Ox 99.0 F 90 20 134/86 H 97 07/25/18 15:31 07/25/18 15:31 07/25/18 15:31 07/25/18 15:31 07/25/18 15:31 Interpretation: Normal - General General appearance: Appears well, Alert - HEENT Head: Normocephalic, Atraumatic Eyes: Normal Pupils: PERRL - Respiratory Respiratory status: No respiratory distress Chest status: Nontender Breath sounds: Normal Chest palpation: Normal - Cardiovascular Rhythm: Regular Heart sounds: Normal auscultation Murmur: No - Abdominal Inspection: Normal Distension: No distension Bowel sounds: Normal Tenderness: Nontender Organomegaly: No organomegaly - Genitourinary External exam: Normal Speculum exam: Normal Vaginal bleeding: Mild Bimanuel exam: Adnexal tenderness. No: Cervical motion tender, Adnexal mass - Back Back: Normal, Nontender - Extremities General upper extremity: Normal inspection, Nontender, Normal color, Normal ROM, Normal temperature General lower extremity: Normal inspection, Nontender, Normal color, Normal ROM, Normal temperature, Normal weight bearing. No: Ban's sign - Neurological Neuro grossly intact: Yes Cognition: Normal Orientation: AAOx4 [place] Coma Scale Eye Opening: Spontaneous [place] Coma Scale Verbal: Oriented [place] Coma Scale Motor: Obeys Commands [place] Coma Scale Total: 15 Speech: Normal Motor strength normal: LUE, RUE, LLE, RLE Sensory: Normal - Psychological Associated symptoms: Normal affect, Normal mood - Skin Skin Temperature: Warm Skin Moisture: Dry Skin Color: Normal Course - Re-evaluation Re-evalutation: 07/26/18 03:35 Labs and ultrasound discussed with patient and written report of labs and ultrasound given to patient to follow-up with primary doctor. - Vital Signs Vital signs: Temp Pulse Resp BP Pulse Ox 98.1 F 76 15 124/85 98 07/25/18 20:02 07/25/18 20:02 07/25/18 20:02 07/25/18 20:02 07/25/18 20:02 - Laboratory Laboratory results interpreted by me: 07/25/18 16:40 Urine Blood MODERATE H - Diagnostic Test Radiology reviewed: Image reviewed, Reports reviewed Discharge - Discharge Clinical Impression: Vaginal bleeding, Bacterial vaginosis Condition: Stable Disposition: HOME, SELF-CARE Additional Instructions: VAGINAL BLEEDING: You are having an episode of abnormal bleeding. Causes of abnormal vaginal bleeding can include miscarriage or tubal , tumors such as cancer or benign fibroids, medication effects, or hormone imbalance. Testing can eliminate unsuspected , tumors, or infection as a cause. "Dysfunctional uterine bleeding" is due to hormone imbalance, and is especially common at times when the normal cycle is disturbed -- whether by recent , use of control pills or hormones, or impending menopause. If the bleeding is innocent, most commonly a short course of hormones is given to restore the uterus to normal. Sometimes, the normal menstrual cycle corrects itself naturally. Sometimes, brief hormone therapy, or even a D&C is required. Your physician will advise you. Treatment for anemia may be required if bleeding is severe. You should rest and avoid intercourse until the bleeding is controlled. Call the doctor or return for re-examination if you feel faint, have increasing pain, or have a major increase in the amount of bleeding. VAGINOSIS, BACTERIAL: Your exam shows you have bacterial vaginosis. This condition is due to an overgrowth of bacteria in the vagina. Symptoms may include vaginal itching or pain, a smelly discharge, and sometimes burning with urination. Normally this is not transmitted by sexual contact. Vaginosis can be treated with oral or topical antibiotics. Metronidazole (Flagyl) pills are usually effective. Topical vaginal creams include Cleocin and Metro-Gel. You should avoid sexual contact until your symptoms are all better. Call the doctor if you develop pelvic pain, fever, or problems with urination, or if you don't improve as expected. METRONIDAZOLE: Metronidazole (Flagyl) has been prescribed. This medication is used to kill a type of bacteria called anaerobes, and protozoan parasites such as trichomonas and Giardia. Flagyl often causes a metallic taste in the mouth and mild nausea. Do not use alcohol in any form with Flagyl (including alcohol in medication elixirs). Flagyl interacts with alcohol to cause flushing, palpitations, headache, stomach cramps, and vomiting. Do not use Flagyl if you are taking Antabuse (disulfiram). Call the doctor at once if you develop rash, shortness of breath, itching, or lightheadedness. FOLLOW-UP CARE: If you have been referred to a physician for follow-up care, call the physicians office for an appointment as you were instructed or within the next two days. If you experience worsening or a significant change in your symptoms, notify the physician immediately or return to the Emergency Department at any time for re-evaluation. OBSTETRIC-GYNECOLOGIC ([facility] [place]: [facility] [address] [place] [address] [phone] Prescriptions: Metronidazole [Flagyl 500 mg Tablet] 500 mg PO BID #14 tablet Forms: Elevated Blood Pressure, Return to Work Referrals: COLTEN SOTO PA [Primary Care Provider] - Follow up as needed
[2018-07-25 17:05] LABS: APPEARANCE,URINE SLIGHTLY-CLOUDY; BILIRUBIN,URINE NEGATIVE (NEGATIVE); COLOR,URINE YELLOW; GLUCOSE, URINE NEGATIVE (NEGATIVE); KETONES,URINE NEGATIVE (NEGATIVE); LEUKOCYTE ESTERASE,URINE NEGATIVE (NEGATIVE); NITRITE,URINE NEGATIVE (NEGATIVE); PROTEIN,URINE NEGATIVE (NEGATIVE); URINE SPECIFIC GRAVITY 1.032; UROBILINOGEN,URINE NEGATIVE mg/dL (<2.0)
[2018-07-25 17:24] LABS: BACTERIA (WET MOUNT) 4+ BACTERIA SEEN; EPITHELIALS (WET MOUNT) 3+ EPITHELIALS SEEN; T.VAGINALIS (WET MOUNT) NO TRICHOMONAS SEEN; WBCS (WET MOUNT) 1+ WBCS SEEN; YEAST (WET MOUNT) NO YEAST SEEN
--- NOTE | 2018-07-25 18:06 | RADIOLOGY REPORT (SQ) ---
EXAM DESCRIPTION: U/S OB TRANSVAGINAL W/O DOP COMPLETED DATE/TIME: 07/25/2018 5:49 pm REASON FOR STUDY: lower pelvic pain COMPARISON: None. TECHNIQUE: Transvaginal static and realtime grayscale images acquired of the pelvis. Additional juliano cted spectral and color Doppler images recorded. All images stored on PACs. CLINICAL AGE: 7 weeks 3 days BHCG: Pending. LIMITATIONS: None. FINDINGS: UTERUS: No visualized intrauterine . RIGHT ADNEXA: Ovary not identified due to poor acoustical window. No adnexal free fluid. No adnexal masses. LEFT ADNEXA: Ovary not identified due to poor acoustical window. No adnexal free fluid. No adnexal masses. FREE FLUID: None. OTHER: No other significant finding. IMPRESSION: NO VISUALIZED INTRA- OR EXTRAUTERINE . ECTOPIC CANNOT BE EXCLUDED. FOLLOW-UP ULTRASOUND AND SERIAL BHCG LEVELS STRONGLY RECOMMENDED TO ACCURATELY ASSESS STATU S. TECHNICAL DOCUMENTATION: JOB ID: [id number] [employer]- All Rights Reserved Reading location - IP/workstation name: [email or web address]
[2018-07-25 18:51] LABS: CHLAM PCR NOT DETECTED (NOT DETECT); GON PCR NOT DETECTED (NOT DETECT)
[2018-07-25] MEDS ORDERED: METRONIDAZOLE 500 MG TABLET PO ONE (19:28)
[2018-07-25 20:14] VITALS: BP 124/85
== END 2018-07-25 20:14 | disposition home or self-care (01) ==
LOC: ER 15:26
DX: N76.0 Acute vaginitis (principal); B96.89 Other specified bacterial agents as the cause of diseases classified elsewhere; R10.2 Pelvic and perineal pain; N93.8 Other specified abnormal uterine and vaginal bleeding
CPT/HCPCS: 36415; 76817; 81001; 84702; 87210; 87491; 87591; 99284

== ENCOUNTER 2019-01-06 21:41 | Emergency (ER) | payer OTHER ==
--- NOTE | 2019-01-07 01:19 | ER Document Report ---
ED GI Bleed / Rectal Pain - General Chief Complaint: Rectal Bleeding Stated Complaint: ABNORMAL BLEEDING Time Seen by Provider: 01/07/19 01:04 Primary Care Provider: COLTEN SOTO PA [Primary Care Provider] - Follow up as needed TRAVEL OUTSIDE OF THE [place] IN LAST 30 DAYS: No - HPI Notes: Patient is a 28-year-old female that presents to the emergency department for chief complaint of rectal bleeding. Patient has a history of hemorrhoids in 2017 after having her child. She states that she is having similar bleeding that began today. She reports having a hard stool this morning with bright red blood. She has had 2 more soft stools later in the day that also had some bright red bleeding. She reports anal itching but denies any anal pain. She reports history of iron deficiency anemia and has been compliant with her iron supplementation. She states she had a brief episode of lightheadedness after 1 of the bowel movements this afternoon that resolved after a few seconds. She does not currently feel lightheaded. She has not had any palpitations, fatigue or shortness of breath. Past Medical History: Iron deficiency anemia Past Surgical History: Reviewed in chart Social History: Denies drugs alcohol and tobacco Family History: Reviewed and noncontributory for presenting illness Allergies: Reviewed, see documented allergy list. REVIEW OF SYSTEMS: CONSTITUTIONAL : No fever No chills No diaphoresis No recent illness EENT: No vision changes No congestion No sore throat CARDIOVASCULAR: No chest pain No palpitations RESPIRATORY: No shortness of breath No cough No difficulty breathing GASTROINTESTINAL: No abdominal pain No nausea No vomiting No diarrhea GENITOURINARY: No dysuria No hematuria No difficulty urinating Bright red blood per rectum MUSCULOSKELETAL: No back pain No leg pain No arm pain SKIN: No rashes No lesions LYMPHATIC: No swollen, enlarged glands. NEUROLOGICAL: Patient lightheadedness No headache No weakness No paresthesias PSYCHIATRIC: No anxiety No depression PHYSICAL EXAMINATION: Vital signs reviewed, nursing noted reviewed. GENERAL: Well-appearing, well-nourished and in no acute distress. HEAD: Atraumatic, normocephalic. EYES: Eyes appear normal, extraocular movements intact, sclera anicteric, conjunctiva are normal. ENT: nares patent, oropharynx clear without exudates. Moist mucous membranes. NECK: Normal range of motion, supple without lymphadenopathy LUNGS: Breath sounds clear to auscultation bilaterally and equal. No wheezes rales or rhonchi. HEART: Regular rate and rhythm without murmurs ABDOMEN: Soft, nontender, normoactive bowel sounds. No rebound, guarding, or rigidity. No masses appreciated. : 2 small nonthrombosed external hemorrhoids. No external anal fissure. Normal rectal tone. No obvious bleeding. Internal exam reveals at least 2 soft internal hemorrhoids without active bleeding. EXTREMITIES: Nontender, good range of motion, no pitting or edema. NEUROLOGICAL: No focal neurological deficits. Moves all extremities spontaneously Motor and sensory grossly intact on exam. PSYCH: Normal mood, normal affect. SKIN: Warm, Dry, normal turgor, no rashes or lesions noted on exposed skin - Related Data Allergies/Adverse Reactions: No Known Allergies Allergy (Verified 07/25/18 15:29) Past Medical History - Social History Smoking Status: Never Smoker Family History: Reviewed & Not Pertinent Neurological Medical History: Reports: Hx Migraine Renal/ Medical History: Reports: Hx Ovarian Cysts. Denies: Hx Peritoneal Dialysis Past Surgical History: Reports: Hx Cholecystectomy - jan 2018 - Immunizations Immunizations up to date: Yes Hx Diphtheria, Pertussis, Tetanus Vaccination: Yes Physical Exam - Vital signs Vitals: Temp Pulse Resp BP Pulse Ox 98.3 F 90 18 153/107 H 93 01/06/19 22:33 01/06/19 22:33 01/06/19 22:33 01/06/19 22:33 01/06/19 22:33 Course - Re-evaluation Re-evalutation: 01/07/19 01:16 Vitals reviewed. Nursing notes reviewed. Patient's presentation is consistent with hemorrhoidal bleeding. She was counseled on sitz bath and stool softeners. She does have a history of anemia but is not currently symptomatic of acute blood loss anemia to necessitate further blood work. Patient does report she has had elevated blood pressures in the past and it is elevated today. She is not on blood pressure medication and states it is usually lower in the office. I did advise her that she needs to have her blood pressure rechecked by her PCP in the next few days. Patient will refer referred to GI for follow-up of her hemorrhoids and bleeding. She was counseled on returning to the emergency room if bleeding continues or if she develops lightheadedness, palpitations, fatigue or continued bleeding. Patient in agreement with this plan of care and stable at discharge. - Vital Signs Vital signs: Temp Pulse Resp BP Pulse Ox 98.3 F 90 18 153/107 H 93 01/06/19 22:33 01/06/19 22:33 01/06/19 22:33 01/06/19 22:33 01/06/19 22:33 Discharge - Discharge Clinical Impression: Bleeding hemorrhoid Condition: Stable Disposition: HOME, SELF-CARE Instructions: Hemorrhoids ([facility]) Additional Instructions: Please return to the emergency department if you have any worsening, or concern of your symptoms. Please return to the emergency department if you develop lightheadedness, continued bleeding, difficulty breathing, severe abdominal pain, or ongoing vomiting. Please follow-up with your primary care physician in 2-3 days and any other recommended physicians. If prescribed, take all medications as directed. If you have any questions or concerns do not hesitate to return the emergency department for evaluation. Sit in a warm bath that covers her anus for 15 to 20 minutes at a time 2-3 times a day to soothe external hemorrhoids. Use Preparation H cream as directed on the label Begin taking Colace as directed on the label to prevent hard stools. Referrals: LIZBETH COBB MD [ACTIVE STAFF] - Follow up as needed COLTEN SOTO PA [Primary Care Provider] - Follow up in 3-5 days
[2019-01-07 02:33] VITALS: BP 125/89
== END 2019-01-07 02:10 | disposition home or self-care (01) ==
LOC: ER 21:41
DX: K64.8 Other hemorrhoids (principal); K64.4 Residual hemorrhoidal skin tags; D50.9 Iron deficiency anemia, unspecified; Z79.899 Other long term (current) drug therapy; R42 Dizziness and giddiness; I10 Essential (primary) hypertension
CPT/HCPCS: 99282

== ENCOUNTER 2019-02-28 09:36 | Emergency (ER) | payer OTHER ==
--- NOTE | 2019-02-28 09:48 | ER Document Report ---
ED Medical Screen (RME) - General Chief Complaint: Vaginal Discharge Stated Complaint: PELVIC PAIN Time Seen by Provider: 02/28/19 09:47 Primary Care Provider: COLTEN SOTO PA [Primary Care Provider] - Follow up as needed TRAVEL OUTSIDE OF THE [place] IN LAST 30 DAYS: No - HPI Notes: 02/28/19 09:48 Patient is a 29-year-old female who presents complaining of bilateral pelvic pain and yellow vaginal discharge with occasional itching over the past 5 days. No fever, nausea/vomiting, diarrhea, dysuria. No vaginal bleeding. I have treated and performed a rapid initial assessment of this patient. A comprehensive ED assessment and evaluation of the patient, analysis of test results and completion of medical decision making process will be conducted by additional ED providers. PHYSICAL EXAMINATION: GENERAL: Well-appearing, well-nourished and in no acute distress. Answers questions appropriately. - Related Data Allergies/Adverse Reactions: No Known Allergies Allergy (Verified 02/28/19 09:39) Past Medical History - Social History Family history: None Neurological Medical History: Reports: Hx Migraine Renal/ Medical History: Reports: Hx Ovarian Cysts. Denies: Hx Peritoneal Dialysis Past Surgical History: Reports: Hx Cholecystectomy - jan 2018 - Immunizations Immunizations up to date: Yes Hx Diphtheria, Pertussis, Tetanus Vaccination: Yes Physical Exam - Vital signs Vitals: Temp Pulse Resp BP Pulse Ox 99.0 F 69 16 148/98 H 97 02/28/19 09:40 02/28/19 09:40 02/28/19 09:40 02/28/19 09:40 02/28/19 09:40 Course - Vital Signs Vital signs: Temp Pulse Resp BP Pulse Ox 99.0 F 69 16 148/98 H 97 02/28/19 09:40 02/28/19 09:40 02/28/19 09:40 02/28/19 09:40 02/28/19 09:40 Doctor's Discharge - Discharge Referrals: COLTEN SOTO PA [Primary Care Provider] - Follow up as needed
[2019-02-28 10:16] LABS: APPEARANCE,URINE SLIGHTLY-CLOUDY; BILIRUBIN,URINE NEGATIVE (NEGATIVE); COLOR,URINE YELLOW; GLUCOSE, URINE NEGATIVE (NEGATIVE); KETONES,URINE NEGATIVE (NEGATIVE); PROTEIN,URINE NEGATIVE (NEGATIVE); URINE SPECIFIC GRAVITY 1.018; UROBILINOGEN,URINE NEGATIVE mg/dL (<2.0)
--- NOTE | 2019-02-28 10:29 | ER Document Report ---
ED GI/ - General Chief Complaint: Vaginal Discharge Stated Complaint: PELVIC PAIN Time Seen by Provider: 02/28/19 09:47 Primary Care Provider: COLTEN SOTO PA [Primary Care Provider] - Follow up as needed Notes: Patient is complaining of pain in her left side of her pelvis and on the left back. She says the pain in her left pelvic region started about 3 days ago and the pain in her back began yesterday. She did have some vaginal discharge which was yellow in color on Saturday. Last week it was itching and she tried taking some Monistat for possible yeast infection but it did not help her symptoms. Patient is not aware of any fever although she is felt hot. Denies any UTI symptoms. Has had some nausea but not vomiting. Not constipated. Patient has had a history of ovarian cysts. Patient's last menstrual cycle was February 14 and she is on no control. She is had her gallbladder removed. History of migraine headaches and anemia. TRAVEL OUTSIDE OF THE [place] IN LAST 30 DAYS: No - Related Data Allergies/Adverse Reactions: No Known Allergies Allergy (Verified 02/28/19 09:39) Past Medical History - Social History Smoking Status: Former Smoker Family History: Reviewed & Not Pertinent Patient has suicidal ideation: No Patient has homicidal ideation: No Neurological Medical History: Reports: Hx Migraine Renal/ Medical History: Reports: Hx Ovarian Cysts Past Surgical History: Reports: Hx Cholecystectomy - jan 2018, Hx Oral Surgery - wisdom teeth - Immunizations Immunizations up to date: Yes Hx Diphtheria, Pertussis, Tetanus Vaccination: Yes Review of Systems - Review of Systems Notes: CONSTITUTIONAL : Denies fever but has felt hot. CARDIOVASCULAR: Denies chest pain. RESPIRATORY: Denies cough, chest congestion, or shortness of breath. GASTROINTESTINAL: Denies abdominal pain. Has had some nausea, but no vomiting, or diarrhea. GENITOURINARY: Denies difficulty or painful urinating, urinary frequency, blood in urine. See HPI. Physical Exam - Vital signs Vitals: Temp Pulse Resp BP Pulse Ox 99.0 F 69 16 148/98 H 97 02/28/19 09:40 02/28/19 09:40 02/28/19 09:40 02/28/19 09:40 02/28/19 09:40 Interpretation: Normal Notes: PHYSICAL EXAMINATION: GENERAL: Well-appearing, no acute distress. HEAD: Atraumatic, normocephalic. NECK: Normal range of motion, supple. LUNGS: Breath sounds clear and equal bilaterally. HEART: Regular rate and rhythm without murmurs heard. ABDOMEN: Soft, tender left lower quadrant, but no guarding or rebound or masses felt. Back: No percussion tenderness in the left back or flank. Course - Vital Signs Vital signs: Temp Pulse Resp BP Pulse Ox 97.6 F 70 17 137/95 H 97 02/28/19 12:36 02/28/19 12:36 02/28/19 12:36 02/28/19 12:36 02/28/19 12:36 - Laboratory Laboratory results interpreted by me: 02/28/19 09:49 Leukocyte Esterase Rfl LARGE H - Diagnostic Test Radiology reviewed: Image reviewed, Reports reviewed - Ultrasound did not show any abnormalities. Ovaries not visualized. Discharge - Discharge Clinical Impression: Vaginitis, Trichomonas infection Condition: Stable Disposition: HOME, SELF-CARE Additional Instructions: VAGINITIS: Your exam shows that you have vaginitis, a vaginal infection. The infection can be caused by a many different organisms, including trichomonas or Gardnerella. The usual symptoms are vaginal irritation and discharge. The treatment is usually antibiotics such as Flagyl. Laboratory tests can determine which germ is responsible. Use the medication as prescribed. Because this infection can be transmitted sexually, your sexual partner may need to be checked and treated also. If your physician has not discussed this with you, please check before resuming sexual relations. If a culture shows gonorrhea or chlamydia, the infection must be reported to the health department. Call the doctor if you develop pelvic pain, fever, or problems with urination, or if you don't improve as expected. VAGINOSIS, BACTERIAL: Your exam shows you have bacterial vaginosis. This condition is due to an overgrowth of bacteria in the vagina. Symptoms may include vaginal itching or pain, a smelly discharge, and sometimes burning with urination. Normally this is not transmitted by sexual contact. Vaginosis can be treated with oral or topical antibiotics. Metronidazole (Flagyl) pills are usually effective. Topical vaginal creams include Cleocin and Metro-Gel. You should avoid sexual contact until your symptoms are all better. Call the doctor if you develop pelvic pain, fever, or problems with urination, or if you don't improve as expected. VAGINAL TRICHOMONAS INFECTION: Trichomoniasis is infection of the vagina or male genital tract with Trichomonas vaginalis. It can be asymptomatic or cause urethritis, vaginitis, or occasionally cystitis, epididymitis, or prostatitis. Diagnosis is by microscopic examination of vaginal or prostatic secretions or by urethral culture. Patients and sex partners are treated with metronidazole. T. vaginalis is a flagellated, sexually transmitted protozoan that more often infects women (about 20% of women of reproductive age) than men. Infection may be asymptomatic in either sex, but asymptomatic is the rule for men. In men, protozoa may persist for long periods in the tract without causing symptoms; thus, protozoa may be transmitted unwittingly to sex partners. Trichomoniasis may account for up to 5% of nongonococcal, nonchlamydial urethritis in men in some areas. Co-infection with gonorrhea and other sexually transmitted diseases (STDs) is common. In women, symptoms range from none to copious, yellow-green, frothy vaginal discharge with soreness of the vulva and perineum, dyspareunia, and dysuria. Asymptomatic infection may become symptomatic at any time as the vulva and perineum become inflamed and edema develops in the labia. The vaginal talavera and surface of the cervix may have punctate, red "strawberry" spots. Urethritis and possibly cystitis may also occur. Men are usually asymptomatic; however, sometimes urethritis results in a discharge that may be transient, frothy, or purulent or that causes dysuria and frequency, usually early in the morning. Often, urethritis is mild and causes only minimal urethral irritation and occasional moisture at the urethral meatus, under the foreskin, or both. Epididymitis and prostatitis are rare complications. Trichomoniasis is suspected in women with vaginitis, in men with urethritis, and in their sex partners. Suspicion is high if symptoms persist after patients have been evaluated and treated for other infections such as gonorrhea and chlamydial, mycoplasmal, and ureaplasmal infections. In women, diagnosis is based on clinical criteria and in-office testing. The saline wet mount is examined microscopically as soon as possible to detect trichomonads.In men, microscopy of urine is insensitive, although occasionally organisms are visible in a first-voided morning specimen or a centrifuged specimen. Cultures of urine and urethral swabs are more sensitive. As with diagnosis of any STD, patients with trichomoniasis should be tested to exclude other common STDs such as gonorrhea and chlamydial infection. Metronidazole or tinidazole 2 g po in a single dose cures up to 95% of women if sex partners are treated simultaneously. Effectiveness of single-dose regimens in men is not as clear, so treatment is typically with metronidazole or tinidazole 500 mg bid for 5 to 7 days. Sex partners should be screened and treated for trichomoniasis and other STDs. If poor adherence to follow-up is likely, treatment can be initiated in sex partners of patients with documented trichomoniasis without confirming the diagnosis in the partner. ANTIBIOTIC THERAPY: You have been given an antibiotic prescription. It's important that you take all the medication, unless instructed otherwise by your physician. Failure to complete the entire course can result in relapse of your condition. Common side effects of antibiotics include nausea, intestinal cramping, or diarrhea. Women may develop vaginal yeast infections, and babies can get yeast (thrush) in the mouth following the use of antibiotics. Contact your physician if you develop significant side effects from this medication. Allergy to this antibiotic can result in hives, wheezing, faintness, or itching. If symptoms of allergy occur, stop the medication and call the doctor. CEPHALOSPORINS: An antibiotic of the cephalosporin class has been prescribed. This type of antibiotic covers a wide variety of infections, including those of the skin, lungs, middle ear, and urinary tract. This antibiotic is somewhat similar to the penicillin family. In rare cases, a person who is allergic to penicillin will also be allergic to this medication. If you have had a severe allergic reaction to penicillin, and have not taken this antibiotic since that time, notify your doctor. Antibiotics which cover many germs ("broad spectrum" antibiotics) are more likely to cause diarrhea or "yeast" infections. Women prone to vaginal yeast problems may suffer an attack after taking this antibiotic. In infants, oral thrush (white spots "stuck" on the cheek) or yeast diaper rash may result. See your doctor if these problems occur. Call the doctor at once if you develop hives, itching, shortness of breath, or lightheadedness. AZITHROMYCIN: Azithromycin (Zithromax) is a broad spectrum antibiotic in the same class as erythromycin. It can treat a variety of bacterial infections, but is most frequently used for respiratory infections. Azithromycin is extremely long-lasting. It accumulates in body tissues and continues to kill bacteria for many days. In order to improve absorption, Azithromycin should be taken at least one hour before or two hours after a meal. It does not have the same strong tendency to upset the stomach as erythromycin and is usually very well tolerated. Patients who have had a rash or other true allergic reactions to erythromycin should not take this medication. Call if you develop gastrointestinal distress, severe diarrhea, rash, hives, itching, or shortness of breath. METRONIDAZOLE: Metronidazole (Flagyl) has been prescribed. This medication is used to kill a type of bacteria called anaerobes, and protozoan parasites such as trichomonas and Giardia. Flagyl often causes a metallic taste in the mouth and mild nausea. Do not use alcohol in any form with Flagyl (including alcohol in medication elixirs). Flagyl interacts with alcohol to cause flushing, palpitations, headache, stomach cramps, and vomiting. Do not use Flagyl if you are taking Antabuse (disulfiram). Call the doctor at once if you develop rash, shortness of breath, itching, or lightheadedness. URINARY TRACT INFECTION: Your evaluation indicates that you may have a urinary tract infection. This is due to germs growing in the bladder. This is a common problem. This infection usually responds quickly to antibiotics. Your antibiotic should be taken exactly as prescribed. Drink plenty of fluids -- three to four quarts a day. Occasionally, a bladder anesthetic will be prescribed to help stop the feeling of urgency until the antibiotic has a chance to clear the infection. This may cause your urine to be dark orange. Certain urine infections require a culture. If the doctor obtained a culture, the results will be back in two days. You should call to see if a change in treatment is needed. A repeat urinalysis after you finish treatment is often recommended. The physician will let you know if further testing is required. Call the doctor if you develop fever, chills, flank pain, inability to urinate, or blood in the urine. NITROFURANTOIN (MACRODANTIN, MACROBID): You have received a prescription for nitrofurantoin (Macrodantin). This antibiotic is used for urinary tract infections. Women who are or nursing should notify the physician before taking this medicine. If you have ever had a problem caused by this medication in the past, be sure the physician is aware of it. Common side effects of this medicine include nausea, vomiting, or decreased appetite. Notify your physician if these side effects become severe. Immediately stop this medicine and call the physician if you develop cough, shortness of breath, chest pain, weakness, jaundice (yellow color of the skin and whites of the eyes), or a skin rash. FOLLOW-UP CARE: If you have been referred to a physician for follow-up care, call the physicians office for an appointment as you were instructed or within the next two days. If you experience worsening or a significant change in your symptoms, notify the physician immediately or return to the Emergency Department at any time for re-evaluation. Prescriptions: Metronidazole [Flagyl 250 mg Tablet] 250 mg PO Q8 #21 tablet Nitrofurantoin/Nitrofuran Mac [Macrobid 100 mg Capsule] 1 tab PO BID #10 capsule Referrals: COLTEN SOTO PA [Primary Care Provider] - Follow up as needed
--- NOTE | 2019-02-28 10:43 | RADIOLOGY REPORT (SQ) ---
EXAM DESCRIPTION: U/S NON OB PEL TV W/DOPPLER COMPLETED DATE/TIME: 02/28/2019 10:21 am REASON FOR STUDY: pelvic pain COMPARISON: None. TECHNIQUE: Dynamic and static grayscale images acquired of the pelvis via transvaginal approach and recorded on PACS. Additional selected color Doppler and spectral images recorded. LIMITATIONS: Body habitus and overlying bowel gas. FINDINGS: UTERUS: Contour normal. No mass. ENDOMETRIAL STRIPE: No focal or generalized thickening. No masses. CERVIX: No nabothian cysts. RIGHT OVARY AND DOPPLER: Ovary not visualized. LEFT OVARY AND DOPPLER: Ovary not visualized. FREE FLUID: None noted. OTHER: No other significant finding. IMPRESSION: Limited study. Ovaries not visualized. TECHNICAL DOCUMENTATION: JOB ID: [id number] [employer]- All Rights Reserved Rev Reading location - IP/workstation name: [email or web address]
[2019-02-28] MEDS ORDERED: CEFTRIAXONE INJ 250 MG VIAL IM ONE (10:45)
[2019-02-28] MEDS ORDERED: LIDOCAINE 1% INJ-PF (10 MG/ML) 30 ML SDV NEB ONE (10:45)
[2019-02-28] MEDS ORDERED: AZITHROMYCIN 1 GM SUSP PACKET PO ONE (10:45)
[2019-02-28 10:59] LABS: BACTERIA (WET MOUNT) 4+ BACTERIA SEEN; EPITHELIALS (WET MOUNT) 3+ EPITHELIALS SEEN; RBCS (WET MOUNT) 1+ RBCS SEEN; T.VAGINALIS (WET MOUNT) TRICHOMONAS SEEN; WBCS (WET MOUNT) 4+ WBCS SEEN; YEAST (WET MOUNT) NO YEAST SEEN
[2019-02-28] MEDS ORDERED: CEFTRIAXONE INJ 500 MG VIAL IM ONE (11:03)
[2019-02-28 12:35] LABS: CHLAM PCR NOT DETECTED (NOT DETECT)
[2019-02-28 12:43] VITALS: BP 137/95
== END 2019-02-28 12:43 | disposition home or self-care (01) ==
LOC: ER 09:36
DX: N76.0 Acute vaginitis (principal); A59.9 Trichomoniasis, unspecified; R10.2 Pelvic and perineal pain; R10.814 Left lower quadrant abdominal tenderness; M54.9 Dorsalgia, unspecified; R11.0 Nausea; Z87.42 Personal history of other diseases of the female genital tract; Z87.891 Personal history of nicotine dependence
CPT/HCPCS: 99284; 96372; 87086; 87210; 81025; 87088; 81001; 87491; 87591; 76830; 93976; Q0144; J0696